=== PATIENT | female | born 1925 | race Asian ===

== ENCOUNTER 2017-06-26 10:31 | Inpatient (IN) | payer MEDICARE, MEDICAID ==
[~2017-06-26] VITALS: Ht 152.4 cm; Wt 66.7 kg
[~2017-06-26 10:31] MED LIST: GABAPENTIN300 MG PO; ISOSORBIDE MONO30 MG PO; LOPRESSOR25 MG PO; NOVOLOG100 UNIT/2; SPIRONOLACTONE25 MG PO; TRAMADOL HCL50 M1 PO; VASOTEC10 MG PO; Z.0.AMLODIPINE BESY1 PO; Z.0.CATAPRES0.1 MG PO; Z.0.GABAPENTIN100 MG PO; Z.0.HYDRALAZINE HCL5 PO; Z.0.LASIX40 MG PO; Z.0.LEVEMIR100 UNIT/ SQ; Z.0.METOPROLOL SUCC2 PO; Z.0.PANTOPRAZOLE SO4 PO; ZETIA10 MG PO; [UNRECOGNIZED DRUG - OTHER] PO
[2017-06-26] MEDS ORDERED: MEROPENEM 1GM 100 ML IV STA (11:04)
[2017-06-26] MEDS ORDERED: SODIUM CHLORIDE 0.9% 1000ML 1,000 ML IV STA (11:04)
[2017-06-26] MEDS ORDERED: ACETAMINOPHEN 1000 MG/100 ML IV STA (11:04)
[2017-06-26] MEDS ORDERED: ACETAMINOPHEN 1000 MG/100 ML 100 ML IV ONE (11:10)
[2017-06-26] MEDS ORDERED: HYDROCORTISONE SOD SUCCINATE 100 MG VIAL IV ONE (11:15)
[2017-06-26 11:26] LABS: BASOPHILS % 0.2 % (0.0-1.0); EOSINOPHILS % 0.1 % (0.0-6.0); HEMATOCRIT 41.8 % (34.2-44.1); HEMOGLOBIN 14.1 g/dL (12.0-16.0); LYMPHOCYTES # (AUTO) 2.8 (1.0-3.2); LYMPHOCYTES % 29.6 % (18.0-39.1); MEAN CORPUSCULAR HGB CONC 33.7 g/dL (31-35); MEAN CORPUSCULAR VOLUME 91.9 fL (81-99); MONOCYTES # (AUTO) 0.7 (0.2-0.8); MONOCYTES % 6.8 % (4.4-11.3); NEUTROPHILS % 62.8 % (38.7-80.0); RED BLOOD COUNT 4.55 x10e6/uL (3.6-5.1); RED CELL DISTRIBUTION WIDTH 13.6 % (11.7-14.4)
[2017-06-26] MEDS ORDERED: MEROPENEM 1 GM VIAL IV NR (11:30)
[2017-06-26 11:40] LABS: ALBUMIN 3.2 g/dL (3.5-5.0); ALBUMIN/GLOBULIN RATIO 0.6 (0.8-2.0); ANION GAP 17.2 mmol/L (8-16); CREATININE, SERUM 1.76 mg/dL (0.57-1.11); POTASSIUM 5.2 mmol/L (3.5-5.1)
--- NOTE | 2017-06-26 11:41 | Diagnostic Imaging Report ---
PROCEDURE:CHEST SINGLE (PORTABLE) COMPARISON:Chest x-ray, 09/12/10. INDICATIONS:ETT PLACEMENT, CENTRAL LINE EVALUATION FINDINGS: Lines and tubes: There is an ET tube with the tip approximately 1 cm above the win. There is a right subclavian central venous catheter extending to the cavoatrial junction. There is an implanted cardiac device on the left with transvenous leads extending to the right atrium and right ventricle. The cardiac silhouette is moderately enlarged. There is calcification of the mitral annulus and calcification in the aortic arch. No focal pulmonary opacity, pleural effusion or pneumothorax. Upper abdomen unremarkable with no free air. No acute bony abnormality. CONCLUSION: 1. ET tube with tip approximately 1 cm above the win. Right subclavian catheter extends to the cavoatrial junction with no pneumothorax. Implanted cardiac device on the left with transvenous leads. 2. Cardiomegaly. No focal pulmonary opacity or pleural effusion. Dictated by: Abhilash Rosas M.D. on 06/26/2017 at 11:49 Electronically approved by: Abhilash Rosas M.D. on 06/26/2017 at 11:49
[2017-06-26 11:47] LABS: CREATINE KINASE MB 1.1 ng/mL (0.00-5.00); TROPONIN I 0.149 ng/mL (0-0.300)
[2017-06-26 12:01] LABS: BILIRUBIN,URINE NEGATIVE (NEGATIVE); KETONES,URINE NEGATIVE (NEGATIVE); LEUKOCYTE ESTERASE ,URINE NEGATIVE (NEGATIVE); NITRITE,URINE NEGATIVE (NEGATIVE); URINE UROBILINOGEN 0.2 mg/dL (0.2 - 1)
[2017-06-26 12:02] LABS: CLARITY,URINE SL CLOUDY (CLEAR); COLOR,URINE YELLOW (YELLOW); PROTEIN,URINE DIPSTICK 2+ (NEGATIVE)
[2017-06-26 12:03] LABS: INR 1.07; PROTHROMBIN TIME 14.5 seconds (11.9-14.5)
[2017-06-26 12:04] LABS: PARTIAL THROMBOPLASTIN TIME 35.6 seconds (23.8-35.5)
[2017-06-26 12:28] LABS: PLATELET COUNT 201 x10e3/uL (140-360)
[2017-06-26] MEDS ORDERED: NOREPINEPHRINE BITARTRATE/ NS 250 ML IV STA ×2 (12:44→13:18)
[2017-06-26 13:15] LABS: BACTERIA,URINE RARE /HPF; EPITHELIAL CELLS,URINE RARE /LPF
[2017-06-26] MEDS ORDERED: TRAZODONE HCL50 MG PO (13:39)
[2017-06-26] MEDS ORDERED: NITROGLYCERIN0.4 MG SL (13:39)
[2017-06-26] MEDS ORDERED: OMEPRAZOLE40 MG PO (13:39)
[2017-06-26] MEDS ORDERED: DIGOXIN125 MCG PO (13:39)
[2017-06-26] MEDS ORDERED: GABAPENTIN300 MG PO (13:39)
[2017-06-26] MEDS ORDERED: ASPIR 8181 MG PO (13:39)
[2017-06-26] MEDS ORDERED: PREDNISONE5 MG PO (13:39)
[2017-06-26] MEDS ORDERED: MEROPENEM 1GRAM 1 GM in SODIUM CHLORIDE 0.9% 100 ML 100 ML IV SCH (14:00)
[2017-06-26] MEDS ORDERED: MEROPENEM 1 GM VIAL IV SCH (14:00)
[2017-06-26] MEDS: IPRATROPIUM BROMIDE 0.02% 2.5 ML NEB NEB SCH ×2 (14:00→19:40)
[2017-06-26] MEDS: ALBUTEROL SULF 0.083% NEB SOLN 3 ML NEB NEB SCH ×3 (15:00→23:00)
[2017-06-26] MEDS: SODIUM CHLORIDE 0.9% 1000ML 1,000 ML IV SCH ×2 (15:34→21:30)
[2017-06-26 16:39] LABS: ABG PH 7.34 (7.31-7.41)
[2017-06-26] MEDS ORDERED: DEXTROSE 50% SYRINGE 50 ML IV PRN (18:15)
[2017-06-26] MEDS ORDERED: ASPIRIN 81 MG CHEW TAB PO ONE ×2 (19:45)
[2017-06-26 19:48] LABS: CREATINE KINASE MB 2.5 ng/mL (0.00-5.00); TROPONIN I 0.092 ng/mL (0-0.300)
[2017-06-26] MEDS: MIDAZOLAM HCL 25 MG in SODIUM CHLORIDE 0.9% 50ML 45 ML IV PRN (20:10)
[2017-06-26] MEDS ORDERED: INSULIN REGULAR, HUMAN 100 UNIT/1 ML 3ML VIAL SQ SCH (21:00)
[2017-06-26] MEDS: MEROPENEM 1 GM VIAL IV SCH (21:30)
[2017-06-27] VITALS (9 sets, daily range): BP systolic 113–196; BP diastolic 61–134
[2017-06-27] MEDS: ACETAMINOPHEN 1000 MG/100 ML IV SCH ×4 (00:55→21:00)
[2017-06-27] MEDS ORDERED: ALBUTEROL/IPRATROPIUM 3 ML NEB NEB PRN (01:15)
[2017-06-27] MEDS ORDERED: PROPOFOL IV EMULSION 10MG/ML 100 ML ONE (01:27)
[2017-06-27] MEDS ORDERED: PROPOFOL IV EMULSION 10MG/ML 100 ML IV PRN (01:30)
[2017-06-27] MEDS: OSELTAMIVIR PHOSPHATE 75 MG CAP PO SCH ×3 (01:50→21:25)
[2017-06-27] MEDS: MIDAZOLAM HCL 25 MG in SODIUM CHLORIDE 0.9% 50ML 45 ML IV PRN (01:51)
[2017-06-27] MEDS: SODIUM CHLORIDE 0.9% 1000ML 1,000 ML IV SCH ×2 (01:53→16:38)
[2017-06-27] MEDS: IPRATROPIUM BROMIDE 0.02% 2.5 ML NEB NEB SCH ×4 (04:00→18:59)
[2017-06-27] MEDS: ALBUTEROL SULF 0.083% NEB SOLN 3 ML NEB NEB SCH ×7 (04:00→23:45)
[2017-06-27 04:41] LABS: BASOPHILS % 0.2 % (0.0-1.0); HEMATOCRIT 40.2 % (34.2-44.1); HEMOGLOBIN 13.6 g/dL (12.0-16.0); LYMPHOCYTES # (AUTO) 1.3 (1.0-3.2); LYMPHOCYTES % 10.3 % (18.0-39.1); MEAN CORPUSCULAR HEMOGLOBIN 30.9 pg (28-32); MEAN CORPUSCULAR HGB CONC 33.8 g/dL (31-35); MEAN CORPUSCULAR VOLUME 91.4 fL (81-99); MONOCYTES # (AUTO) 0.5 (0.2-0.8); NEUTROPHILS # (AUTO) 10.6 (2.1-6.9); PLATELET COUNT 216 x10e3/uL (140-360); RED CELL DISTRIBUTION WIDTH 13.8 % (11.7-14.4)
[2017-06-27 04:55] LABS: ABG HCO3 19 mmol/L (23-28); ABG PCO2 28 mmHg (41-51); ABG PH 7.43 (7.31-7.41); ABG PO2 96 mmHg (80-105)
[2017-06-27 04:57] LABS: ANION GAP 15.6 mmol/L (8-16); CALCIUM 8.3 mg/dL (8.4-10.2); CREATININE, SERUM 1.6 mg/dL (0.57-1.11); POTASSIUM 4.6 mmol/L (3.5-5.1)
[2017-06-27 05:04] LABS: CREATINE KINASE MB 3.6 ng/mL (0.00-5.00); TROPONIN I 0.094 ng/mL (0-0.300)
[2017-06-27] MEDS: HYDROCORTISONE SOD SUCCINATE 100 MG VIAL IV SCH ×3 (06:06→23:58)
[2017-06-27] MEDS: MEROPENEM 1 GM VIAL IV SCH ×3 (06:06→23:58)
--- NOTE | 2017-06-27 06:07 | Diagnostic Imaging Report ---
CHEST SINGLE (PORTABLE), 06/27/2017 5:00 AM Technique: CHEST SINGLE (PORTABLE) Comparison: None available. Clinical history: Pneumonia Findings: See Impression Impression: 1. Lines/Tubes: Left chest wall dual-lead pacer. Right central venous catheter tip at the high right atrium. ET tube 2.1 cm above the win. 2. Mildly enlarged cardiac silhouette with mitral annulus calcification. 3. Central vascular congestion. 4. Patchy bilateral opacities which may reflect pneumonia. Signed by: Dr Diana Juárez MD on 06/27/2017 6:04 AM
[2017-06-27] MEDS: INSULIN REGULAR, HUMAN 100 UNIT/1 ML 3ML VIAL SQ SCH ×3 (06:15→16:37)
--- NOTE | 2017-06-27 07:23 | Consultation ---
DATE OF CONSULTATION: June 26, 2017 PULMONARY/CRITICAL CARE MEDICINE CONSULT REASON FOR REFERRAL: Respiratory failure. HISTORY: Ms. Akbar is a pleasant 89-year-old female with acute respiratory failure. Patient was in usual state of health recently. Details are partially unknown due to the fact that she is not able to give history. Patient was noted to be with cough several days ago. Today, the patient could not wake up. Patient was found by EMS to be in respiratory distress. Oxygen saturation was 50%. Patient was given Versed and was intubated. Blood pressure was 60s systolic when she arrived. She was immediately intubated. She had fever 104 degrees. She had wheezing and dyspnea on clinical exam. Patient had blood gas showing 7.34/36/224 on 100% oxygen. Patient was given Levophed high dose. BNP was 184. Chest x-ray was mostly clear. Urinalysis with no significant white blood cells noted. Her creatinine is 1.76, above her baseline. At this point, she is admitted and I am consulted. PAST MEDICAL HISTORY: Hypertension, diabetes, CHF, coronary artery disease, stroke reported. Patient recently with good functional status, but noted to be frail. MEDICATIONS: Medication list reviewed per electronic record. Levophed has already been taken off. Versed drip 4 mg per hour. IV fluids 125 mL per hour. Other medicines per record. ALLERGIES: NO KNOWN DRUG ALLERGIES. SOCIAL HISTORY: No smoking, no drinking, no drugs. Lives with family reportedly. FAMILY HISTORY: Noncontributory to this. REVIEW OF SYSTEMS: Cannot get as she is intubated. OBJECTIVE: VITAL SIGNS: Patient is currently afebrile as the temperature has come down. Other vitals per electronic record. GENERAL: No distress, in coma, on medications and on ventilator. HEENT: Normocephalic, atraumatic. NECK: Supple. Throat midline. LUNGS: Bilateral air entry, few rhonchi throughout, mild to moderate wheezing. CARDIOVASCULAR: S1 and S2. No murmurs, rubs, or gallops. ABDOMEN: Soft, nontender. EXTREMITIES: No clubbing, no cyanosis, there is no edema. INTEGUMENT: No rash, no purpura. LABS: 5.2 potassium, 1.76 creatinine. 9.5 white count, 42 hematocrit, 21,000 platelets. Urinalysis with no white cells. IMPRESSION AND PLAN: 1. Acute respiratory failure, intubated. 2. Shock, septic and possibly obstructive. 3. Pulmonary hypertension. 4. Treat for severe asthma exacerbation. 5. Treat for possible bronchitis or pneumonia. 6. Febrile syndrome, not otherwise specified, under evaluation. 7. Baseline debility. 8. Diabetes. 9. Hypertension. 10. History of transient ischemic attack. 11. Coronary artery disease, medically treated in the past. 12. Reported valvular heart disease. Continue intubated state. Wean the ventilator down. Patient still with moderately high ventilator pressures and with active wheezing. She will probably not be extubated in the morning. I am okay with starting low-dose tube feeds and following carefully with aspiration precautions. Furthermore, patient to be switched off the Versed with propofol as her blood pressure is better. Follow up off the Levophed. Pancultures were done. Continue antibiotics as needed. Will follow along closely. Start Tamiflu empirically. Gastrointestinal prophylaxis and deep venous thrombosis prophylaxis are indicated. Thank you very much, Dr. Sarabia for allowing me the chance to participate in the care of Ms. Akbar. Do not hesitate to contact me if I can help in any way. Job#: [id number]
[2017-06-27] MEDS: VANCOMYCIN 750MG/NS 150ML IVPB 150 ML IV SCH ×2 (08:48→21:02)
[2017-06-27 12:00] LABS: CREATINE KINASE MB 2.6 ng/mL (0.00-5.00); TROPONIN I 0.095 ng/mL (0-0.300)
--- NOTE | 2017-06-27 15:11 | Progress Note ---
DATE: June 27, 2017 PULMONARY MEDICINE PROGRESS NOTE SUBJECTIVE: Mrs. Akbar was seen and examined at bedside. Patient continues to have slow progress. She remains off the pressors at this time. However, she did have continued propofol. She has moderately increased airway pressures on ventilator with 25 peak pressure. She has audible moderate wheezing and moderate rhonchi. She is with urine output at about 75 mL per hour. She is at 100% oxygen saturation on treatment. REVIEW OF SYSTEMS: Cannot get as she is intubated. OBJECTIVE VITAL SIGNS: Afebrile. Vital signs noted per electronic record. GENERALLY: No acute distress, alert and mostly very well sedated. Takes a lot to get her to eye open. HEENT: Normocephalic, atraumatic. NECK: Supple. Throat midline. LUNGS: Bilateral air entry, a few rhonchi, a few crackles, a few wheezes throughout. CARDIOVASCULAR: S1 and S2. No murmurs, rubs or gallops. ABDOMINAL: Soft, nontender. EXTREMITIES: No clubbing, no cyanosis. There is no significant edema. INTEGUMENT: No rash. No purpura. LABS: BUN 29, creatinine 1.6. White count 12.4, hematocrit 40. IMPRESSION AND PLAN 1. Acute respiratory failure, intubated. 2. Septic shock, improved. 3. Encephalopathy, multifactorial. 4. Treat for acute pneumonia. 5. Treat for possible influenza pneumonia. 6. Asthma exacerbation versus bronchitis exacerbation. Continue current treatment. Keep her intubated. Ventilator support. Continue some steroids for the breathing. Bronchodilators. IV antibiotics will be continued. Will adjust medicines for her creatinine clearance and will have to investigate vancomycin namely, as well as Merrem. Follow up closely. Patient remains in critical condition. I discussed with her granddaughter regarding the treatment plan. Job#: [id number] EV
[2017-06-27] MEDS ORDERED: SODIUM CHLORIDE 0.9% 50ML 50 ML ONE (16:29)
[2017-06-27] MEDS ORDERED: METOPROLOL TARTRATE 25 MG TAB NG ONE (21:00)
--- NOTE | 2017-06-27 21:59 | Diagnostic Imaging Report ---
EXAM: US RENAL RETROPERITONEAL COMP INDICATION: \S\delilah/ckd COMPARISON: None TECHNIQUE: Transverse and longitudinal images of the kidneys and bladder were obtained. FINDINGS: Right Kidney: Length: 8.1 cm Appearance: Increased echogenicity. Collecting system: No hydronephrosis Stones: None Cyst/Mass: Interpolar renal cyst, 1.6 x 1.5 x 1.4 cm Left Kidney: Length: 8.0 cm Appearance: Increased echogenicity. Collecting system: No hydronephrosis Stones: None Cyst/Mass: None Bladder: Not seen Impression: No hydronephrosis. Findings which can be seen with medical renal disease. Signed by: Dr Diana Juárez MD on 06/27/2017 9:55 PM
--- NOTE | 2017-06-27 22:48 | Consultation ---
DATE OF CONSULTATION: June 27, 2017 REASON FOR THE CONSULTATION: Respiratory failure, multiple medical health problems. Source of information, patient is intubated, is from the family, records, extensive visits with the family and evaluation. HISTORY: This is an 89-year-old lady, who is known with multiple health problems including very severe advanced lung disease, repeated aspirations, repeated respiratory distress, several intubations in the past, very stormy course in 2010, 2011, 2013. Patient also is known to have pacemaker implantation. Patient is diabetic of many years' duration. She is quite debilitated. She is hypertensive. She has history of TIAs. There is history of possible seizure disorder. Surprisingly, patient is doing well at home. She is in her chronic illness status. Her activities are very limited. She does have shortness of breath on minimal activity. She needed continuous care by the family. Patient came to this institution on June 26, 2017, with acute respiratory failure, extreme hypotension. She was ill for several days with fever of 104 with wheezing. Her blood gases following intubation was good. Her BNP on admission was only at 184. Surprisingly, her chest x-ray was clear. She was dehydrated. Her creatinine was elevated. Patient intubated, on ventilator. She needs to have support of her blood pressure initially, but then old was withdrawn. Her temperature coming down. She is covered with , vancomycin, and she was given hydrocortisone. She was placed on insulin treatment. Prior to this illness, patient, as I mentioned, surprisingly does not have any angina. She does have easy fatigability, shortness of breath on minimal activity, repeated cough, chronic pulmonary condition. She takes several medications including inhalers and she is surprisingly managed to do well for the last few years. PAST MEDICAL HISTORY 1. Diabetes mellitus, severe end-organ damage. 2. Hypertension. 3. Hysterectomy. 4. Cataract surgery. 5. TIA. 6. Repeated prolonged intubation in the past. 7. Cataract surgery. 8. Repeated pneumonia. 9. Seizure activity. 10. Coronary artery disease, medically treated. 11. Pacemaker implantation. HOME MEDICATIONS: Very lengthy list including Toprol, Norvasc, clonidine, hydralazine, insulin Levemir, Lasix, spironolactone, potassium supplement, Protonix, Toradol. ALLERGIES: NONE. FAMILY HISTORY: Strongly positive for hypertension, diabetes mellitus, but no premature coronary artery disease. She lost a daughter to sarcoma. PHYSICAL EXAM VITALS: Elderly lady, intubated, on ventilator. Height of 5'1". Weight of 140 pounds. Blood pressure 160/90. Heart rate of 80. Respiratory rate of 18. HEENT: Opacities are noted. Patient is intubated. NECK: No elevation of jugular venous pulsation. CHEST: There is right subclavian central line in place. There is pacemaker on the left infraclavicular area. There are crackles both lung meier with decreased air entry. HEART: Irregularly irregular rate with a pacemaker spikes at times. Increased intensity of 2nd heart sounds. Mitral and tricuspid regurgitation murmur are noted. ABDOMEN: Liver edge is palpable. Soft abdomen. EXTREMITIES: Chronic skin discoloration and changes. No edema. No gross signs of DVT. NEUROLOGIC: Patient on ventilator intubated, sedated. LAB DATA: Admission BNP was normal. Repeated BNP today after several liters of IV fluids at 114.71. ABG showed pH of 7.43, pCO2 of 28, pO2 of 96 on ventilator. Most recent BUN at 29, creatinine of 1.6, sodium 135, potassium 4.6. White blood cell count of 12.4, hemoglobin 13.6, hematocrit 40%, platelet count 216,000. IMPRESSIONS AND PLAN 1. Acute respiratory failure most likely secondary to the recent febrile illness. 2. Shock status on admission, but with IV fluids resuscitation and inotropes, which was thought patient's blood pressure recovered. 3. Clinically pulmonary hypertension. 4. Chronic lung disease with history of several intubations in the past. 5. Coronary artery disease. 6. Pacemaker implantation. 7. Repeated aspiration. 8. Debility. 9. Uncontrolled diabetes mellitus. 10. Valvular heart disease. Cardiac-madrid plan will be supportive medical therapy. Adjustment of diuresis and volume. Pulmonary care. Patient already covered with antibiotic. Will check echocardiogram. Will adjust medication. Case discussed with the staff and more importantly with the granddaughter, then with the son, and several family members, very lengthy visit. Will follow patient's progression with you and would like to thank you for your kind referral. Job#: [id number] CQ
[2017-06-28] VITALS (22 sets, daily range): BP systolic 101–187; BP diastolic 58–120
[2017-06-28] MEDS: ACETAMINOPHEN 1000 MG/100 ML IV SCH (00:04)
[2017-06-28] MEDS: DOXYCYCLINE 100MG/NS 100ML 100 ML IV SCH ×2 (00:46→11:37)
[2017-06-28] MEDS: INSULIN REGULAR, HUMAN 100 UNIT/1 ML 3ML VIAL SQ SCH ×4 (00:46→17:31)
[2017-06-28] MEDS: IPRATROPIUM BROMIDE 0.02% 2.5 ML NEB NEB SCH ×6 (03:21→21:47)
[2017-06-28] MEDS: ALBUTEROL SULF 0.083% NEB SOLN 3 ML NEB NEB SCH ×5 (04:04→19:00)
[2017-06-28 05:14] LABS: BASOPHILS % 0.1 % (0.0-1.0); HEMATOCRIT 31.2 % (34.2-44.1); HEMOGLOBIN 10.5 g/dL (12.0-16.0); LYMPHOCYTES # (AUTO) 0.7 (1.0-3.2); LYMPHOCYTES % 8.8 % (18.0-39.1); MEAN CORPUSCULAR HEMOGLOBIN 31.3 pg (28-32); MEAN CORPUSCULAR HGB CONC 33.7 g/dL (31-35); MEAN CORPUSCULAR VOLUME 93.1 fL (81-99); MONOCYTES # (AUTO) 0.2 (0.2-0.8); MONOCYTES % 2.7 % (4.4-11.3); NEUTROPHILS # (AUTO) 7.4 (2.1-6.9); NEUTROPHILS % 87.9 % (38.7-80.0); PLATELET COUNT 159 x10e3/uL (140-360); RED BLOOD COUNT 3.35 x10e6/uL (3.6-5.1); RED CELL DISTRIBUTION WIDTH 14.2 % (11.7-14.4)
[2017-06-28 05:38] LABS: ALBUMIN 2.1 g/dL (3.5-5.0); ALBUMIN/GLOBULIN RATIO 0.6 (0.8-2.0); ANION GAP 13.3 mmol/L (8-16); CALCIUM 8.1 mg/dL (8.4-10.2); CHOL/HDL RATIO 5.2 (3.0-3.6); CREATININE, SERUM 1.42 mg/dL (0.57-1.11); POTASSIUM 4.3 mmol/L (3.5-5.1)
[2017-06-28 05:58] LABS: CREATINE KINASE MB 1.5 ng/mL (0.00-5.00); THYROID STIMULATING HORMONE 0.684 uIU/mL (0.350-4.940); TROPONIN I 0.09 ng/mL (0-0.300)
--- NOTE | 2017-06-28 06:48 | Diagnostic Imaging Report ---
CHEST SINGLE (PORTABLE), 06/28/2017 5:00 AM Technique: CHEST SINGLE (PORTABLE) Comparison: 06/27/2017 Clinical history: Respiratory failure Findings: See Impression Impression: 1. Lines/Tubes: Left chest wall dual-lead pacer. Right central venous catheter tip at the high right atrium. Placement of subdiaphragmatic NG tube. ET tube at the win; recommend retraction. 2. Stable enlarged cardiac silhouette with mitral annulus calcification. 3. Central vascular congestion. 4. Patchy bilateral opacities which may reflect pneumonia and/or atelectasis. Signed by: Dr Diana Juárez MD on 06/28/2017 6:44 AM
[2017-06-28] MEDS: MEROPENEM 1 GM VIAL IV SCH ×3 (06:52→21:35)
[2017-06-28] MEDS: SODIUM CHLORIDE 0.9% 1000ML 1,000 ML IV SCH ×2 (06:52→14:00)
[2017-06-28] MEDS: HYDROCORTISONE SOD SUCCINATE 100 MG VIAL IV SCH ×3 (06:52→21:35)
[2017-06-28] MEDS: FAMOTIDINE 20 MG/2 ML VIAL IV SCH ×2 (09:00→17:31)
[2017-06-28] MEDS: METOPROLOL TARTRATE 25 MG TAB NG SCH ×2 (09:00→15:28)
[2017-06-28] MEDS: OSELTAMIVIR PHOSPHATE 75 MG CAP PO SCH ×2 (09:00→21:34)
[2017-06-28] MEDS: HEPARIN SOD (PORCINE) 5,000 UNIT/ML VIAL SC SCH ×2 (10:06→21:33)
[2017-06-28] MEDS: INSULIN DETEMIR 100 UNIT/ML PEN SQ SCH ×2 (11:38→21:30)
[2017-06-28] MEDS ORDERED: ENALAPRIL MALEATE 5 MG TAB PO ONE (13:00)
[2017-06-28] MEDS ORDERED: SODIUM CHLORIDE 0.9% 50ML 50 ML ONE (15:00)
[2017-06-28] MEDS: CLONIDINE HCL 0.1 MG TAB PO SCH (15:30)
[2017-06-28] MEDS: AMLODIPINE BESYLATE 5 MG TAB PO SCH (15:31)
[2017-06-28] MEDS ORDERED: LACTULOSE SYRUP 20 GM/30 ML UDC PO ONE ×2 (18:30→21:45)
[2017-06-28] MEDS: VANCOMYCIN 750MG/NS 150ML IVPB 150 ML IV SCH (21:46)
[2017-06-29] VITALS (23 sets, daily range): BP systolic 124–192; BP diastolic 71–112
[2017-06-29] MEDS: ALBUTEROL SULF 0.083% NEB SOLN 3 ML NEB NEB SCH ×6 (02:15→22:45)
[2017-06-29] MEDS: IPRATROPIUM BROMIDE 0.02% 2.5 ML NEB NEB SCH ×4 (02:15→19:20)
[2017-06-29] MEDS: FUROSEMIDE INJ 10 MG/ML 4 ML VIAL IV SCH ×3 (02:37→22:41)
[2017-06-29] MEDS ORDERED: HYDRALAZINE HCL 20 MG/ML VIAL IV PRN (03:15)
--- NOTE | 2017-06-29 04:38 | Progress Note ---
DATE: June 28, 2017 PULMONARY MEDICINE PROGRESS NOTE SUBJECTIVE: Mrs. Akbar was seen and examined at bedside. She was on the ventilator in the morning. 98 per minute. RSPI 71. Patient was at least -27. She remains on IV fluids at this time. Tube feeds were not yet started and awaiting extubation decision. Will give the patient a shot at extubation. Even into the night, she is spontaneously breathing, although there is some mild shortness of breath cited. Chest x-ray shows pneumonia versus overload pattern. REVIEW OF SYSTEMS: Cannot get as she is on mechanical support. OBJECTIVE VITALS: Afebrile. Vital signs noted per electronic record. GENERAL: No acute distress. Alert but looks weak. HEENT: Normocephalic and atraumatic. NECK: Supple. Throat midline. LUNGS: Bilateral air entry. Few wheezes and few rhonchi. Rare crackles. CARDIOVASCULAR: S1 and S2. No murmurs, rubs or gallops. ABDOMEN: Soft and nontender. EXTREMITIES: No clubbing. No cyanosis. No edema. INTEGUMENT: No rash. No purpura. LABS: Creatinine 1.4, bicarbonate 21. White count 8, hematocrit 31, and platelets 159,000. IMPRESSION AND PLAN 1. Acute respiratory failure, intubated and then extubated. 2. Asthma with exacerbation. 3. Pneumonia. 4. Possible fluid overload component. 5. Weakness. 6. Syzao-nt-exsbavv kidney disease. 7. Treat for possible influenza. Continue IV antibiotics. Continue trial of Tamiflu. At this time, will ensue with diuretics. Patient is on BiPAP p.r.n. for comfort. Will follow along closely. Repeat blood draw tomorrow. Follow along closely and ensure appropriate progress. Continue steroids. Greater than 30 minutes of direct care on this date. Multiple interventions, assessment and coordination of care. Job#: [id number] KARMEN
[2017-06-29] MEDS: HYDROCORTISONE SOD SUCCINATE 100 MG VIAL IV SCH ×3 (05:34→22:41)
[2017-06-29] MEDS: INSULIN REGULAR, HUMAN 100 UNIT/1 ML 3ML VIAL SQ SCH ×4 (05:50→17:54)
[2017-06-29 05:55] LABS: BASOPHILS % 0.1 % (0.0-1.0); HEMATOCRIT 36.4 % (34.2-44.1); LYMPHOCYTES # (AUTO) 0.8 (1.0-3.2); LYMPHOCYTES % 6.8 % (18.0-39.1); MEAN CORPUSCULAR HEMOGLOBIN 30.5 pg (28-32); MEAN CORPUSCULAR VOLUME 92.6 fL (81-99); MONOCYTES # (AUTO) 0.3 (0.2-0.8); MONOCYTES % 2.6 % (4.4-11.3); NEUTROPHILS # (AUTO) 10.7 (2.1-6.9); NEUTROPHILS % 88.7 % (38.7-80.0); PLATELET COUNT 193 x10e3/uL (140-360); RED BLOOD COUNT 3.93 x10e6/uL (3.6-5.1); RED CELL DISTRIBUTION WIDTH 14.5 % (11.7-14.4)
[2017-06-29 06:18] LABS: CREATININE, SERUM 1.4 mg/dL (0.57-1.11); MAGNESIUM 1.7 MG/DL (1.3-2.1); PHOSPHORUS 2.1 MG/DL (2.3-4.7)
[2017-06-29 06:29] LABS: ANION GAP 17.1 mmol/L (8-16)
[2017-06-29 06:30] LABS: POTASSIUM 3.1 mmol/L (3.5-5.1)
--- NOTE | 2017-06-29 06:30 | Diagnostic Imaging Report ---
CHEST SINGLE (PORTABLE), 06/29/2017 5:00 AM Technique: CHEST SINGLE (PORTABLE) Comparison: 06/28/2017 Clinical history: Respiratory failure Findings: See Impression Impression: 1. Lines/Tubes: Left chest wall dual-lead pacer. Right central venous catheter tip at the high right atrium. Removal of NG tube, ET tube. 2. Stable enlarged cardiac silhouette with mitral annulus calcification. 3. Central vascular congestion. 4. Patchy bilateral opacities which may reflect pneumonia and/or atelectasis. Signed by: Dr Diana Juárez MD on 06/29/2017 6:26 AM
[2017-06-29] MEDS: OSELTAMIVIR PHOSPHATE 75 MG CAP PO SCH ×2 (09:00→21:00)
[2017-06-29] MEDS: FAMOTIDINE 20 MG/2 ML VIAL IV SCH ×2 (09:27→17:00)
[2017-06-29] MEDS: MEROPENEM 500MG 500 MG in SODIUM CHLORIDE 0.9% 50ML 50 ML IV SCH ×2 (09:27→22:41)
[2017-06-29] MEDS: CLONIDINE HCL 0.1 MG TAB PO SCH ×2 (09:29→17:00)
[2017-06-29] MEDS: METOPROLOL TARTRATE 25 MG TAB NG SCH ×2 (09:29→17:00)
[2017-06-29] MEDS: AMLODIPINE BESYLATE 5 MG TAB PO SCH ×2 (09:30→17:50)
[2017-06-29] MEDS: HEPARIN SOD (PORCINE) 5,000 UNIT/ML VIAL SC SCH ×2 (09:30→21:00)
[2017-06-29] MEDS ORDERED: POTASSIUM CHLORIDE 20MEQ/100ML 100 ML IV ONE (11:00)
[2017-06-29] MEDS: SENNA-S TABLET PO SCH ×2 (12:43→17:50)
[2017-06-29] MEDS: DOXYCYCLINE 100MG/NS 100ML 100 ML IV SCH ×2 (12:43)
[2017-06-29] MEDS ORDERED: POTASSIUM CHL 40 MEQ in WATER STERILE 10ML VIAL 80 ML IV ONE (13:00)
[2017-06-29] MEDS ORDERED: POTASSIUM PHOSPHATE 20 MM in SODIUM CHLORIDE 0.9% 250ML 250 ML IV ONE (17:30)
[2017-06-29] MEDS: APIXAB 2.5 MG TABLET PO SCH (17:50)
[2017-06-29] MEDS ORDERED: MINERAL OIL 132 ML BTL PR PRN ×2 (21:00→22:15)
[2017-06-29] MEDS ORDERED: MAGNESIUM HYDROXIDE 30 ML UDC PO ONE (21:00)
[2017-06-29] MEDS: VANCOMYCIN 750MG/NS 150ML IVPB 150 ML IV SCH (23:00)
[2017-06-30] VITALS (27 sets, daily range): BP systolic 107–187; BP diastolic 67–109
[2017-06-30] MEDS: IPRATROPIUM BROMIDE 0.02% 2.5 ML NEB NEB SCH ×5 (02:45→22:40)
[2017-06-30] MEDS: ALBUTEROL SULF 0.083% NEB SOLN 3 ML NEB NEB SCH ×6 (02:45→22:40)
--- NOTE | 2017-06-30 03:12 | Progress Note ---
DATE: June 29, 2017 PULMONARY MEDICINE PROGRESS NOTE SUBJECTIVE: Mrs. Akbar was seen and examined at bedside. She continues to have weakness. She has moderate assist needed on bed mobility. She has high amounts of urine output, more than 3 L already on Lasix. She did not require BiPAP, but she still has a lot of secretions that she is having trouble coughing up. Oxygen saturation 97% on 3 L per minute nasal cannula. Chest x-ray continues to show bilateral overload versus pneumonia. REVIEW OF SYSTEMS: Cannot get as . OBJECTIVE VITALS: Afebrile. Vital signs noted per electronic record. GENERAL: In no acute distress, but some difficulty expectorating. Occasionally can hear lung crackles from across the room. HEENT: Normocephalic and atraumatic. NECK: Supple. Throat midline. LUNGS: Bilateral air entry. Moderate air entry. Moderate rhonchi, mild wheezes and few crackles. CARDIOVASCULAR: S1 and S2. No murmurs, rubs or gallops. ABDOMEN: Soft and nontender. EXTREMITIES: No clubbing. No cyanosis. There is trace edema. INTEGUMENT: No rash. No purpura. LABS: Potassium 3.1, creatinine 1.4, bicarbonate 19. White count 12, hematocrit 36. IMPRESSION AND PLAN 1. Hypokalemia emerging. 2. Fluid overload. 3. Treat for pneumonia. 4. Acute respiratory failure, extubated yesterday, under risk. 5. Insufficient cough, poor expectoration. 6. Asthma with exacerbation, possibly bronchitis, chronic. 7. Suspect constipation. 8. Weakness. At this time, will follow up while she is on medicines to try to promote bowel movements. Continue to alter diet and limit intake. Speech evaluation felt best as the patient seems to have significant aspiration risk. Only thickened fluid under observation and supervision of staff. Continue to replete potassium. Will follow along closely. Patient remains in critical condition. She still has some risk of being reintubated. However, the assistant casino shift manager yesterday reported the family now states they do not want reintubation. Will follow advance directives. Acapella CPT augment. Will follow along closely. Job#: [id number] KARMEN
[2017-06-30] MEDS: INSULIN REGULAR, HUMAN 100 UNIT/1 ML 3ML VIAL SQ SCH ×5 (06:21→22:56)
--- NOTE | 2017-06-30 06:33 | Diagnostic Imaging Report ---
CHEST SINGLE (PORTABLE), 06/30/2017 5:00 AM Technique: CHEST SINGLE (PORTABLE) Comparison: 06/29/2017 Clinical history: CHF/pneumonia Findings: See Impression Impression: 1. Lines/Tubes: Left chest wall dual-lead pacer. Right central venous catheter tip at the high right atrium. 2. Stable enlarged cardiac silhouette with mitral annulus calcification. 3. Stable patchy bilateral opacities suspicious for pneumonia. Underlying central vascular congestion/trace edema with small left effusion. Signed by: Dr Diana Juárez MD on 06/30/2017 6:30 AM
[2017-06-30 06:39] LABS: BASOPHILS % 0.2 % (0.0-1.0); HEMATOCRIT 34.6 % (34.2-44.1); HEMOGLOBIN 11.4 g/dL (12.0-16.0); LYMPHOCYTES # (AUTO) 0.9 (1.0-3.2); LYMPHOCYTES % 8.3 % (18.0-39.1); MEAN CORPUSCULAR HEMOGLOBIN 30.4 pg (28-32); MEAN CORPUSCULAR HGB CONC 32.9 g/dL (31-35); MEAN CORPUSCULAR VOLUME 92.3 fL (81-99); MONOCYTES # (AUTO) 0.3 (0.2-0.8); NEUTROPHILS # (AUTO) 9.8 (2.1-6.9); NEUTROPHILS % 86.8 % (38.7-80.0); PLATELET COUNT 208 x10e3/uL (140-360); RED BLOOD COUNT 3.75 x10e6/uL (3.6-5.1); RED CELL DISTRIBUTION WIDTH 14.6 % (11.7-14.4)
[2017-06-30 07:06] LABS: ALBUMIN 3.1 g/dL (3.5-5.0); ALBUMIN/GLOBULIN RATIO 0.7 (0.8-2.0); ANION GAP 18.1 mmol/L (8-16); CALCIUM 9.2 mg/dL (8.4-10.2); CREATININE, SERUM 1.36 mg/dL (0.57-1.11); POTASSIUM 3.1 mmol/L (3.5-5.1)
[2017-06-30] MEDS: FAMOTIDINE 20 MG/2 ML VIAL IV SCH ×2 (08:30→17:01)
[2017-06-30] MEDS: METOPROLOL TARTRATE 25 MG TAB NG SCH ×2 (08:30→17:01)
[2017-06-30] MEDS: HYDROCORTISONE SOD SUCCINATE 100 MG VIAL IV SCH ×2 (08:30→22:00)
[2017-06-30] MEDS: SENNA-S TABLET PO SCH ×2 (08:30→17:01)
[2017-06-30] MEDS: APIXAB 2.5 MG TABLET PO SCH ×2 (08:30→17:01)
[2017-06-30] MEDS: OSELTAMIVIR PHOSPHATE 75 MG CAP PO SCH (08:30)
[2017-06-30] MEDS: FUROSEMIDE INJ 10 MG/ML 4 ML VIAL IV SCH ×2 (08:30→22:00)
[2017-06-30] MEDS: CLONIDINE HCL 0.1 MG TAB PO SCH ×2 (08:30→17:01)
[2017-06-30] MEDS: AMLODIPINE BESYLATE 5 MG TAB PO SCH (08:30)
[2017-06-30] MEDS: MEROPENEM 500MG 500 MG in SODIUM CHLORIDE 0.9% 50ML 50 ML IV SCH (08:30)
[2017-06-30] MEDS: HEPARIN SOD (PORCINE) 5,000 UNIT/ML VIAL SC SCH (08:32)
[2017-06-30] MEDS: INSULIN DETEMIR 100 UNIT/ML PEN SQ SCH ×3 (08:33→21:00)
[2017-06-30] MEDS ORDERED: POTASSIUM CHLORIDE 20 MEQ TAB CR PO ONE ×2 (10:30→12:00)
[2017-06-30] MEDS: DOXYCYCLINE 100MG/NS 100ML 100 ML IV SCH ×2 (11:10)
[2017-06-30] MEDS: VANCOMYCIN 750MG/NS 150ML IVPB 150 ML IV SCH (21:00)
[2017-06-30] MEDS: TEMAZEPAM 15 MG CAP PO PRN (22:00)
[2017-06-30] MEDS: MEROPENEM 500MG 500 MG in WATER STERILE 10ML VIAL 10 ML IV SCH (22:00)
[2017-07-01] VITALS (46 sets, daily range): BP systolic 110–171; BP diastolic 60–113
[2017-07-01] MEDS: DOXYCYCLINE 100MG/NS 100ML 100 ML IV SCH ×2 (01:39→12:00)
[2017-07-01] MEDS: ALBUTEROL SULF 0.083% NEB SOLN 3 ML NEB NEB SCH ×6 (02:20→22:35)
[2017-07-01] MEDS ORDERED: GUAIFENESIN/DEXTROMETHORPHAN LIQD 5 ML UDC ONE (02:22)
[2017-07-01] MEDS: GUAIFENESIN/DEXTROMETHORPHAN LIQD 5 ML UDC PO PRN ×2 (02:36→17:53)
[2017-07-01] MEDS: INSULIN REGULAR, HUMAN 100 UNIT/1 ML 3ML VIAL SQ SCH ×4 (05:27→22:15)
--- NOTE | 2017-07-01 06:17 | Diagnostic Imaging Report ---
CHEST SINGLE (PORTABLE), 07/01/2017 5:00 AM Technique: CHEST SINGLE (PORTABLE) Comparison: 1231.17 Clinical history: \S\CHF and bilateral pneumonia \[id number] \S\0530 \S\Y Findings: See Impression Impression: 1. Lines/Tubes: Left chest wall dual-lead pacer. Right central venous catheter tip at the high right atrium. 2. Stable enlarged cardiac silhouette with mitral annulus calcification. 3. Central vascular congestion and/or mild edema. Previously described patchy opacities felt to reflect pneumonia are less conspicuous Signed by: Dr Diana Juárez MD on 07/01/2017 6:14 AM
[2017-07-01 06:27] LABS: BASOPHILS % 0.2 % (0.0-1.0); HEMATOCRIT 34.7 % (34.2-44.1); HEMOGLOBIN 11.1 g/dL (12.0-16.0); LYMPHOCYTES # (AUTO) 0.9 (1.0-3.2); LYMPHOCYTES % 7.8 % (18.0-39.1); MEAN CORPUSCULAR HEMOGLOBIN 30.6 pg (28-32); MEAN CORPUSCULAR VOLUME 95.6 fL (81-99); MONOCYTES # (AUTO) 0.2 (0.2-0.8); MONOCYTES % 1.8 % (4.4-11.3); NEUTROPHILS # (AUTO) 9.7 (2.1-6.9); NEUTROPHILS % 87.4 % (38.7-80.0); PLATELET COUNT 201 x10e3/uL (140-360); RED BLOOD COUNT 3.63 x10e6/uL (3.6-5.1); RED CELL DISTRIBUTION WIDTH 14.6 % (11.7-14.4)
[2017-07-01 07:11] LABS: ALBUMIN 3.1 g/dL (3.5-5.0); ALBUMIN/GLOBULIN RATIO 0.8 (0.8-2.0); ANION GAP 14.3 mmol/L (8-16); CALCIUM 9.5 mg/dL (8.4-10.2); CREATININE, SERUM 1.4 mg/dL (0.57-1.11); POTASSIUM 3.3 mmol/L (3.5-5.1)
[2017-07-01] MEDS: IPRATROPIUM BROMIDE 0.02% 2.5 ML NEB NEB SCH ×4 (07:32→22:35)
[2017-07-01] MEDS: MEROPENEM 500MG 500 MG in WATER STERILE 10ML VIAL 10 ML IV SCH ×2 (09:00→22:03)
[2017-07-01] MEDS: INSULIN DETEMIR 100 UNIT/ML PEN SQ SCH ×2 (09:00→22:14)
[2017-07-01] MEDS: APIXAB 2.5 MG TABLET PO SCH ×2 (09:00→17:00)
[2017-07-01] MEDS: FUROSEMIDE INJ 10 MG/ML 4 ML VIAL IV SCH ×2 (09:00→22:03)
[2017-07-01] MEDS: AMLODIPINE BESYLATE 5 MG TAB PO SCH (09:00)
[2017-07-01] MEDS: FAMOTIDINE 20 MG/2 ML VIAL IV SCH ×2 (09:00→17:00)
[2017-07-01] MEDS: METOPROLOL TARTRATE 25 MG TAB NG SCH ×2 (09:00→17:00)
[2017-07-01] MEDS: SENNA-S TABLET PO SCH ×2 (09:00→17:00)
[2017-07-01] MEDS: CLONIDINE HCL 0.1 MG TAB PO SCH ×2 (09:00→17:00)
[2017-07-01] MEDS: HYDROCORTISONE SOD SUCCINATE 100 MG VIAL IV SCH ×2 (09:00→22:03)
[2017-07-01] MEDS ORDERED: POTASSIUM CHLORIDE 20MEQ/15ML UDC NG ONE (14:00)
--- NOTE | 2017-07-01 16:41 | Progress Note ---
DATE: July 01, 2017 PULMONARY MEDICINE PROGRESS NOTE SUBJECTIVE: Mrs. Akbar was seen and examined at bedside. She continues with steady progress. Patient with 2 liters per minute nasal cannula with 100% oxygen saturation. Liters in 0.6, liters out 2.0. Bowel movements daily. Patient continues to spontaneously breathe although she still has some increased airways resistance. There is still some small difficulty in managing secretions. There is consideration for aspiration as well. REVIEW OF SYSTEMS: Cannot get reliably as she is not speaking Polish at this time. OBJECTIVE VITAL SIGNS: Afebrile. Vital signs noted per electronic record. GENERALLY: In bed. Intermittent cough. Intermittent difficulty coughing secretions. HEENT: Normocephalic, atraumatic. NECK: Supple. Throat midline. LUNGS: Bilateral air entry, a few rhonchi, a few wheezes. CARDIOVASCULAR: S1 and S2. No murmurs, rubs or gallops. ABDOMINAL: Soft, nontender. EXTREMITIES: No clubbing, no cyanosis, no edema. INTEGUMENT: No rash. No purpura. LABS: White count 11, hematocrit 34, platelets 201. Potassium 3.3, BUN 40, creatinine 1.4. Albumin 3.1. Vancomycin peak level is 47 with a trough yesterday of 15.3. Cultures still with sputum cultures negative, urine culture negative, blood cultures negative x2. IMPRESSION AND PLAN 1. Acute respiratory failure, resolving. 2. Dysphagia, suspected aspiration. 3. Fluid overload. 4. Treat as pneumonia. 5. Weakness. Continue to mobilize the patient. Speech therapy evaluation to continue and see the safety of her diet. For now, clear-liquid diet but patient needs supervision. Repeat chest x-ray tomorrow. Continue steady diuresis and continue treatment for asthma flare. Wean hydrocortisone slowly as patient is able to tolerate and breathe better. Job#: [id number] EV
[2017-07-01] MEDS: SIMETHICONE 80 MG CHEW PO PRN (18:15)
[2017-07-01] MEDS: TEMAZEPAM 15 MG CAP PO PRN (22:00)
[2017-07-01] MEDS: VANCOMYCIN 750MG/NS 150ML IVPB 150 ML IV SCH (22:14)
[2017-07-02] VITALS (43 sets, daily range): BP systolic 99–170; BP diastolic 56–130
[2017-07-02] MEDS: DOXYCYCLINE 100MG/NS 100ML 100 ML IV SCH ×2 (00:17→12:00)
[2017-07-02] MEDS ORDERED: MAGNESIUM HYDROXIDE 30 ML UDC ONE (02:29)
[2017-07-02] MEDS: ALBUTEROL SULF 0.083% NEB SOLN 3 ML NEB NEB SCH ×7 (02:45→23:45)
[2017-07-02] MEDS: SIMETHICONE 80 MG CHEW PO PRN (03:32)
[2017-07-02] MEDS: GUAIFENESIN/DEXTROMETHORPHAN LIQD 5 ML UDC PO PRN (03:33)
--- NOTE | 2017-07-02 06:32 | Diagnostic Imaging Report ---
EXAMINATION: CHEST SINGLE (PORTABLE) INDICATION: Cough, shortness of breath COMPARISON: 07/01/2017 FINDINGS: TUBES and LINES: Left-sided pacemaker present. Right subclavian central line catheter is is stable. LUNGS: Lungs are not well inflated. There are bibasilar atelectasis. Worsening interstitial edema. PLEURA: No pleural effusion or pneumothorax. HEART AND MEDIASTINUM: Cardiac size is mildly enlarged. BONES AND SOFT TISSUES: No acute osseous lesion. Soft tissues are unremarkable. UPPER ABDOMEN: No free air under the diaphragm. IMPRESSION: Worsening cardiogenic pulmonary edema. Signed by: Dr. Marshall Tate M.D. on 07/02/2017 6:29 AM
[2017-07-02] MEDS: INSULIN REGULAR, HUMAN 100 UNIT/1 ML 3ML VIAL SQ SCH ×3 (06:34→18:00)
[2017-07-02 07:13] LABS: ANION GAP 15.1 mmol/L (8-16); CALCIUM 8.9 mg/dL (8.4-10.2); CREATININE, SERUM 1.47 mg/dL (0.57-1.11); MAGNESIUM 1.9 MG/DL (1.3-2.1); POTASSIUM 3.1 mmol/L (3.5-5.1)
[2017-07-02] MEDS: IPRATROPIUM BROMIDE 0.02% 2.5 ML NEB NEB SCH ×4 (07:50→23:45)
[2017-07-02] MEDS: FUROSEMIDE INJ 10 MG/ML 4 ML VIAL IV SCH ×2 (09:00→21:59)
[2017-07-02] MEDS: AMLODIPINE BESYLATE 5 MG TAB PO SCH (09:00)
[2017-07-02] MEDS: CLONIDINE HCL 0.1 MG TAB PO SCH ×2 (09:00→17:30)
[2017-07-02] MEDS: HYDROCORTISONE SOD SUCCINATE 100 MG VIAL IV SCH ×2 (09:00→21:59)
[2017-07-02] MEDS: MEROPENEM 500MG 500 MG in WATER STERILE 10ML VIAL 10 ML IV SCH ×2 (09:00→21:59)
[2017-07-02] MEDS: SENNA-S TABLET PO SCH ×2 (09:00→17:30)
[2017-07-02] MEDS: FAMOTIDINE 20 MG/2 ML VIAL IV SCH ×2 (09:00→17:00)
[2017-07-02] MEDS: METOPROLOL TARTRATE 25 MG TAB NG SCH ×2 (09:00→17:30)
[2017-07-02] MEDS: APIXAB 2.5 MG TABLET PO SCH ×2 (09:00→17:00)
[2017-07-02] MEDS ORDERED: POTASSIUM CHLORIDE 20MEQ/15ML UDC NG ONE (09:15)
--- NOTE | 2017-07-02 14:35 | Progress Note ---
DATE: July 02, 2017 PULMONARY MEDICINE PROGRESS NOTE SUBJECTIVE: Mrs. Akbar was seen and examined at bedside. Still weak. Still with some difficulty expectorating. However, by speech and swallow evaluation was allowed to start on some liquid diet. Patient continues to have intermittent confusion as per the family. Two liters per minute by nasal cannula oxygen is ongoing. Liters in 1.8, liters out 3.9. REVIEW OF SYSTEMS: No headaches, no bleeding. OBJECTIVE VITAL SIGNS: Afebrile. Vital signs noted per electronic record. GENERALLY: No acute distress, looks weak, looks chronic, sitting up at bedside. HEENT: Normocephalic, atraumatic. NECK: Supple. Throat midline. LUNGS: Bilateral air entry, a few rhonchi, rare wheezes. CARDIOVASCULAR: S1 and S2. No murmurs, rubs or gallops. ABDOMINAL: Soft, nontender. EXTREMITIES: No clubbing, no cyanosis. There is trace edema. INTEGUMENT: No rash. No purpura. LABS: Potassium 3.1, creatinine 1.5. Hematocrit 35, white count 11. BNP is 871. IMPRESSION AND PLAN 1. Dysphagia. 2. Acute respiratory failure, resolving. 3. Pneumonia. 4. Concomitant fluid overload. 5. Asthma with exacerbation. 6. Hypokalemia. 7. Hyperglycemia. 8. Weakness. Continue aggressive PT and OT. Followup MBS report is seen . Will review the MBS report. Patient will get slightly increased hyperglycemic control. Replete electrolytes. Will follow along closely. Job#: [id number] EV
--- NOTE | 2017-07-02 16:37 | Consultation ---
DATE OF CONSULTATION: July 02, 2017 NEPHROLOGY CONSULTATION REASON FOR CONSULTATION: Acute kidney injury on chronic kidney disease. This is an 89-year-old female who I have seen before, as I recall, at [facility]. A couple of years ago she was admitted with hyperkalemia and needing session of dialysis because of bradycardia. She is known to have CHF, status post pacemaker and she is known to have multiple other medical problems, hypertension, diabetes and chronic kidney disease. I am going to check the records to see what her baseline was. At this time, she came here complaining of a few days of productive cough with wheezing and dyspnea on minimal exertion. EMS was called and she was found to be hypoxic in hypoxic respiratory failure. She is intubated. She is brought to the ER. She was given some fluids to support her blood pressure, which is per records reported to be down in the 60's. Over the last couple of days, her x-ray got worse with pulmonary edema. She is on Lasix with good diuresis. Her creatinine came down from 1.7 to 1.4. We are consulted to be on the case given history of chronic kidney disease. Note that the patient does not follow up as an outpatient in the clinic. REVIEW OF SYSTEMS: Negative otherwise. PAST MEDICAL HISTORY: As mentioned above. PAST SURGICAL HISTORY: Status post hysterectomy, status post pacemaker. FAMILY HISTORY: Positive for hypertension, CAD. SOCIAL HISTORY: No smoking, alcohol, IV drug abuse. She is living with family. ALLERGIES: NEGATIVE PER RECORDS. PHYSICAL EXAMINATION VITAL SIGNS: Blood pressure today of 138/69, heart rate is 86, oxygen 100% on nasal cannula, 2 liters. The patient was extubated a couple of days ago. GENERAL APPEARANCE: No acute distress. HEAD, EARS, EYES, NOSE, AND NECK: No lymphadenopathy. HEART: Regular rate and rhythm. No murmurs. LUNGS: Bilateral rales. ABDOMEN: Soft and nontender. EXTREMITIES: No edema. LABORATORY DATA: Sodium 139, potassium 3.1, CO2 was 31, creatinine down from 1.7 to 1.4 and BUN is 41. Glucose 425, lactic acid 28.9, calcium 8.9, magnesium 1.9. BNP is 871. Troponin is negative. Her vancomycin trough was elevated. Her urine is positive for RBCs and glucose and protein. ASSESSMENT AND PLAN 1. Acute kidney injury on top of chronic kidney disease. We need to go back in the records to see what was her baseline kidney function, but I remember the patient was having chronic kidney disease, and, as I mentioned in the history, that at one point she was admitted to [facility] with hyperkalemia, severe, with bradycardia for which she had 1 session of dialysis, as I recall. I have to go back in the records to check. Creatinine came down from 1.7 to 1.4. I am assuming this could be close to her baseline. Monitor closely. She is on diuresis with excellent output. Check records and secretion of sodium. Also, monitor and adjust antibiotics to current GFR given vancomycin trough was high. Avoid any further nephrotoxins. Check renal ultrasound. 2. Electrolytes. Replete potassium p.r.n. She is on Aldactone. 3. Pulmonary edema on Lasix and Aldactone with good diuresis. 4. Congestive heart failure. Dr. Sutherland is following on medical treatment and status post pacemaker. 5. Respiratory failure, possible pneumonia. Dr. Skaggs is on the case with pulmonary and influenza was negative. She is on breathing treatment and extubated, now on nasal cannula oxygen with good saturation. Monitor closely. 6. Diabetes with high blood sugar. Adjust insulin. Thank you for the consult. We will update the primary team for further recommendations. In the meantime, we will check her old records to figure out what was her baseline. Keep diuresis and monitor electrolytes and replace accordingly. Thank you for the consult. Job#: [id number]
[2017-07-02] MEDS: SPIRONOLACTONE 25 MG TAB PO SCH (17:30)
[2017-07-02] MEDS: INSULIN DETEMIR 100 UNIT/ML PEN SQ SCH (21:45)
[2017-07-02] MEDS: VANCOMYCIN 750MG/NS 150ML IVPB 150 ML IV SCH (21:59)
[2017-07-03] VITALS (23 sets, daily range): BP systolic 96–166; BP diastolic 54–87
[2017-07-03] MEDS: INSULIN REGULAR, HUMAN 100 UNIT/1 ML 3ML VIAL SQ SCH ×5 (00:45→23:59)
[2017-07-03] MEDS: DOXYCYCLINE 100MG/NS 100ML 100 ML IV SCH ×3 (00:49→23:59)
[2017-07-03] MEDS: ALBUTEROL SULF 0.083% NEB SOLN 3 ML NEB NEB SCH ×6 (03:30→23:00)
--- NOTE | 2017-07-03 05:57 | Diagnostic Imaging Report ---
EXAMINATION: CHEST SINGLE (PORTABLE) INDICATION: Congestive heart failure COMPARISON: 07/02/2017 FINDINGS: TUBES and LINES: The pacemaker is intact. Right subclavian central line catheter with tip overlying the atrial caval junction. LUNGS: Lungs are well inflated. Minimal interlobular septi thickening present. There is confluent airspace opacity in the left midlung. There is mild prominence of the central pulmonary vasculature, consistent with pulmonary venous congestion. PLEURA: No pleural effusion or pneumothorax. HEART AND MEDIASTINUM: Cardiac size is moderately enlarged. There are atherosclerotic calcifications within the aorta. BONES AND SOFT TISSUES: No acute osseous lesion. Soft tissues are unremarkable. UPPER ABDOMEN: No free air under the diaphragm. IMPRESSION: Mild cardiogenic pulmonary edema. Left midlung airspace disease suspicious for superimposed pneumonia Signed by: Dr. Marshall Tate M.D. on 07/03/2017 5:54 AM
[2017-07-03 06:20] LABS: ANION GAP 15.1 mmol/L (8-16); CALCIUM 9.4 mg/dL (8.4-10.2); CREATININE, SERUM 1.4 mg/dL (0.57-1.11); PHOSPHORUS 2.5 MG/DL (2.3-4.7); POTASSIUM 3.1 mmol/L (3.5-5.1)
[2017-07-03] MEDS: IPRATROPIUM BROMIDE 0.02% 2.5 ML NEB NEB SCH ×3 (07:26→20:00)
--- NOTE | 2017-07-03 08:18 | Diagnostic Imaging Report ---
PROCEDURE:X-RAY MODIFIED BARIUM SWALLOW COMPARISON:None. INDICATIONS:Possible aspiration DISCUSSION:Fluoroscopic examination was performed in conjunction with speech pathology, during swallowing of a variety of thin and thick liquid consistencies. Fluoroscopy time: One minute and 35 seconds Total dose: 4.85 mGy CONCLUSION:No aspiration. Premature spillage to the level of the vallecula with trace pharyngeal residue. Please see the report from speech pathology for complete details. Johnnie Mireles D.O. Dictated by: Johnnie Mireles D.O. on 07/03/2017 at 8:26 Electronically approved by: Johnnie Mireles D.O. on 07/03/2017 at 8:26
[2017-07-03] MEDS ORDERED: SODIUM CHLORIDE 0.9% 50ML 50 ML ONE (08:48)
[2017-07-03] MEDS: FUROSEMIDE INJ 10 MG/ML 4 ML VIAL IV SCH ×2 (09:00→20:55)
[2017-07-03] MEDS: FAMOTIDINE 20 MG/2 ML VIAL IV SCH ×2 (09:19→16:27)
[2017-07-03] MEDS: MEROPENEM 500MG 500 MG in WATER STERILE 10ML VIAL 10 ML IV SCH ×2 (09:19→20:55)
[2017-07-03] MEDS: HYDROCORTISONE SOD SUCCINATE 100 MG VIAL IV SCH (09:19)
[2017-07-03] MEDS: SPIRONOLACTONE 25 MG TAB PO SCH ×2 (09:20→16:28)
[2017-07-03] MEDS: AMLODIPINE BESYLATE 5 MG TAB PO SCH (09:20)
[2017-07-03] MEDS: SENNA-S TABLET PO SCH ×2 (09:20→16:28)
[2017-07-03] MEDS: APIXAB 2.5 MG TABLET PO SCH ×2 (09:20→16:28)
[2017-07-03] MEDS: METOPROLOL TARTRATE 25 MG TAB NG SCH ×2 (09:20→16:28)
[2017-07-03] MEDS: CLONIDINE HCL 0.1 MG TAB PO SCH ×2 (09:20→16:28)
[2017-07-03] MEDS: INSULIN DETEMIR 100 UNIT/ML PEN SQ SCH ×2 (09:23→21:00)
[2017-07-03] MEDS ORDERED: POTASSIUM CHLORIDE 20MEQ/100ML 300 ML IV ONE (09:30)
[2017-07-03] MEDS ORDERED: POTASSIUM CHL IV SCH (10:00)
[2017-07-03] MEDS ORDERED: SODIUM CHLORIDE 0.9% IV SCH (10:00)
--- NOTE | 2017-07-03 14:24 | Progress Note ---
DATE: July 03, 2017 PULMONARY MEDICINE PROGRESS NOTE SUBJECTIVE: Ms. Akbar was seen and examined at bedside. Patient with decreased eating. Glucerna will be initiated. Does have 1 liter in, 2.6 liters out. There is some hyperglycemia that is being noted. Patient's chest x-ray continued to show some mild overload and left pneumonia, 98% oxygen saturation on 2 liters per minute nasal cannula. With PT, she is still very weak, but she did take 5 steps today. REVIEW OF SYSTEMS: No headaches, no bleeding. OBJECTIVE VITAL SIGNS: Afebrile. Vital signs noted per electronic record. GENERAL: No acute distress, alert and calm, sitting up. HEENT: Normocephalic, atraumatic. NECK: Supple. Throat midline. LUNGS: Bilateral air entry. Few rhonchi, rare wheezes. CARDIOVASCULAR: S1 and S2. No murmurs, rubs or gallops. ABDOMINAL: Soft, nontender. EXTREMITIES: No clubbing, no cyanosis. There is no edema. INTEGUMENT: No rash. No purpura. LABS: Potassium 3.1, creatinine 1.4. White count 11, hematocrit 35, platelets 201. IMPRESSION AND PLAN 1. Acute respiratory failure, resolved. 2. Asthma with exacerbation. 3. Pneumonia. 4. Fluid overload. 5. Weakness. 6. Chronic kidney disease. 7. Active hyperglycemia. Continue current treatment. Insulin was injected and there was some additional insulin given and started last night. Will follow up the result of this. Modify insulin as needed. Continue to promote diet. Give Glucerna for nutrition given her poor nutritional intake. Repeat chest x-ray tomorrow. Replete electrolytes and continue some diuretics. Will follow along closely. Job#: [id number] VAS
[2017-07-03] MEDS ORDERED: MEROPENEM 500 MG VIAL ONE (20:47)
[2017-07-03] MEDS: TEMAZEPAM 15 MG CAP PO PRN (21:30)
[2017-07-03] MEDS: VANCOMYCIN 750MG/NS 150ML IVPB 150 ML IV SCH (21:45)
[2017-07-03] MEDS ORDERED: SODIUM CHLORIDE 0.9% 250ML 250 ML ONE (22:10)
[2017-07-04] VITALS: BP 124/71
[2017-07-04] MEDS: IPRATROPIUM BROMIDE 0.02% 2.5 ML NEB NEB SCH ×4 (01:00→19:35)
[2017-07-04] MEDS: GUAIFENESIN/DEXTROMETHORPHAN LIQD 5 ML UDC PO PRN ×2 (01:14→05:48)
[2017-07-04] MEDS: ALBUTEROL SULF 0.083% NEB SOLN 3 ML NEB NEB SCH ×5 (03:00→19:35)
[2017-07-04 04:00] VITALS: BP 119/74
[2017-07-04] MEDS: INSULIN REGULAR, HUMAN 100 UNIT/1 ML 3ML VIAL SQ SCH ×3 (05:48→18:00)
--- NOTE | 2017-07-04 06:37 | Diagnostic Imaging Report ---
EXAMINATION: CHEST SINGLE (PORTABLE) INDICATION: CHF. Shortness of breath COMPARISON: 07/03/2017 FINDINGS: TUBES and LINES: Subclavian central line catheter is stable. Left-sided pacemaker is stable LUNGS: Lungs are not well inflated. There are bibasilar atelectasis. There is mild prominence of the central pulmonary vasculature, consistent with pulmonary venous congestion. Improved interlobular septi thickening PLEURA: No pleural effusion or pneumothorax. HEART AND MEDIASTINUM: Cardiac size is mildly enlarged. BONES AND SOFT TISSUES: No acute osseous lesion. Soft tissues are unremarkable. UPPER ABDOMEN: No free air under the diaphragm. IMPRESSION: Improving moderate cardiogenic pulmonary edema Signed by: Dr. Marshall Tate M.D. on 07/04/2017 6:33 AM
[2017-07-04 07:07] LABS: BASOPHILS % 0.4 % (0.0-1.0); EOSINOPHILS # (AUTO) 0.1 (0.0-0.4); EOSINOPHILS % 0.6 % (0.0-6.0); HEMATOCRIT 35.8 % (34.2-44.1); HEMOGLOBIN 11.6 g/dL (12.0-16.0); LYMPHOCYTES # (AUTO) 2.5 (1.0-3.2); LYMPHOCYTES % 25.7 % (18.0-39.1); MEAN CORPUSCULAR HEMOGLOBIN 30.5 pg (28-32); MEAN CORPUSCULAR HGB CONC 32.4 g/dL (31-35); MEAN CORPUSCULAR VOLUME 94.2 fL (81-99); MONOCYTES # (AUTO) 0.5 (0.2-0.8); NEUTROPHILS # (AUTO) 6.2 (2.1-6.9); NEUTROPHILS % 63.9 % (38.7-80.0); PLATELET COUNT 211 x10e3/uL (140-360); RED CELL DISTRIBUTION WIDTH 14.1 % (11.7-14.4)
[2017-07-04 07:36] LABS: CREATININE, SERUM 1.17 mg/dL (0.57-1.11)
[2017-07-04 07:46] VITALS: BP 171/113
[2017-07-04] MEDS ORDERED: MEROPENEM 500 MG VIAL ONE (08:52)
[2017-07-04] MEDS ORDERED: PREDNISONE 20 MG TAB PO SCH (09:00)
[2017-07-04] MEDS: FUROSEMIDE INJ 10 MG/ML 4 ML VIAL IV SCH (09:41)
[2017-07-04] MEDS: METOPROLOL TARTRATE 25 MG TAB NG SCH ×2 (09:41→17:32)
[2017-07-04] MEDS: FAMOTIDINE 20 MG/2 ML VIAL IV SCH ×2 (09:41→17:31)
[2017-07-04] MEDS: APIXAB 2.5 MG TABLET PO SCH ×2 (09:42→17:32)
[2017-07-04] MEDS: SENNA-S TABLET PO SCH ×2 (09:42→17:32)
[2017-07-04] MEDS: AMLODIPINE BESYLATE 5 MG TAB PO SCH (09:42)
[2017-07-04] MEDS: INSULIN DETEMIR 100 UNIT/ML PEN SQ SCH ×2 (09:42→21:00)
[2017-07-04] MEDS: CLONIDINE HCL 0.1 MG TAB PO SCH ×2 (09:42→17:32)
[2017-07-04] MEDS: SPIRONOLACTONE 25 MG TAB PO SCH ×2 (09:42→17:32)
[2017-07-04] MEDS: POTASSIUM CHLORIDE 20 MEQ TAB CR PO SCH ×2 (10:30→12:00)
[2017-07-04 11:19] VITALS: BP 150/72
[2017-07-04] MEDS: DOXYCYCLINE 100MG/NS 100ML 100 ML IV SCH ×2 (12:00→23:54)
--- NOTE | 2017-07-04 15:06 | Progress Note ---
DATE: July 04, 2017 PULMONARY MEDICINE PROGRESS NOTE SUBJECTIVE: Patient ate 50% of her breakfast after a long time and effort. Overall patient continues to eat very small amounts usually. Liters in 1.9, liters out 2.0. Chest x-ray is better with mild overload and mild atelectasis and opacities. Patient sitting up and talking but still very low in energy and very weak. REVIEW OF SYSTEMS: No headaches, no rash. OBJECTIVE VITAL SIGNS: Afebrile. Vital signs noted per electronic record. GENERALLY: No acute distress, alert and calm. HEENT: Normocephalic, atraumatic. NECK: Supple. Throat midline. LUNGS: Bilateral air entry, slightly limited to auscultation due to decreased effort. A few rhonchi. CARDIOVASCULAR: S1 and S2. No murmurs, rubs or gallops. ABDOMINAL: Soft, nontender. EXTREMITIES: No clubbing, no cyanosis, no edema. INTEGUMENT: No rash. No purpura. LABS: Potassium 3.0, BUN 29, creatinine 1.1. White count 9.7. Vancomycin trough 17. IMPRESSION AND PLAN 1. Pneumonia. 2. Acute respiratory failure, resolved. 3. Residual weakness and debility. 4. Rhtft-ve-vbgkqly kidney injury. 5. Hypokalemia today. 6. Fluid overload. 7. Intermittent confusion. Patient still with effects of severe sepsis and multiorgan dysfunction. Will continue to follow her. Continue aggressive PT and OT. Will wean the steroids down again. Stop vancomycin as cultures were not showing the need for this. Continue medicines for severe ICU pneumonia. Patient will continue on diuretics although this dose will be decreased as well, and we hope to get a steady negative fluid balance. Job#: [id number] VINCENT
[2017-07-04 15:42] VITALS: BP 132/83
[2017-07-04 20:00] VITALS: BP 158/72
[2017-07-04] MEDS: TEMAZEPAM 15 MG CAP PO PRN (20:49)
[2017-07-04] MEDS: MEROPENEM 500 MG VIAL IV SCH (20:49)
[2017-07-05] MEDS: INSULIN REGULAR, HUMAN 100 UNIT/1 ML 3ML VIAL SQ SCH ×3 (00:19→12:00)
[2017-07-05] MEDS: IPRATROPIUM BROMIDE 0.02% 2.5 ML NEB NEB SCH ×3 (02:00→15:23)
[2017-07-05] MEDS: ALBUTEROL SULF 0.083% NEB SOLN 3 ML NEB NEB SCH ×4 (02:00→15:23)
[2017-07-05 04:00] VITALS: BP 142/67
[2017-07-05 07:11] LABS: BASOPHILS % 0.3 % (0.0-1.0); EOSINOPHILS % 0.4 % (0.0-6.0); HEMATOCRIT 33.4 % (34.2-44.1); HEMOGLOBIN 10.9 g/dL (12.0-16.0); LYMPHOCYTES # (AUTO) 2.4 (1.0-3.2); LYMPHOCYTES % 25.4 % (18.0-39.1); MEAN CORPUSCULAR HEMOGLOBIN 30.6 pg (28-32); MEAN CORPUSCULAR HGB CONC 32.6 g/dL (31-35); MEAN CORPUSCULAR VOLUME 93.8 fL (81-99); MONOCYTES # (AUTO) 0.5 (0.2-0.8); MONOCYTES % 4.8 % (4.4-11.3); NEUTROPHILS # (AUTO) 6.3 (2.1-6.9); NEUTROPHILS % 66.6 % (38.7-80.0); PLATELET COUNT 203 x10e3/uL (140-360); RED BLOOD COUNT 3.56 x10e6/uL (3.6-5.1)
[2017-07-05 07:34] LABS: ALBUMIN 2.4 g/dL (3.5-5.0); ALBUMIN/GLOBULIN RATIO 0.7 (0.8-2.0); CALCIUM 8.6 mg/dL (8.4-10.2); CREATININE, SERUM 1.17 mg/dL (0.57-1.11); MAGNESIUM 1.9 MG/DL (1.3-2.1)
[2017-07-05 08:00] VITALS: BP 139/77
[2017-07-05] MEDS: FAMOTIDINE 20 MG/2 ML VIAL IV SCH (09:00)
[2017-07-05] MEDS: AMLODIPINE BESYLATE 5 MG TAB PO SCH (09:00)
[2017-07-05] MEDS: SENNA-S TABLET PO SCH (09:00)
[2017-07-05] MEDS: CLONIDINE HCL 0.1 MG TAB PO SCH (09:00)
[2017-07-05] MEDS: METOPROLOL TARTRATE 25 MG TAB NG SCH (09:00)
[2017-07-05] MEDS: SPIRONOLACTONE 25 MG TAB PO SCH (09:00)
[2017-07-05] MEDS ORDERED: PREDNISONE 10 MG TAB PO SCH (09:00)
[2017-07-05] MEDS ORDERED: FUROSEMIDE INJ 10 MG/ML 4 ML VIAL IV SCH (09:00)
[2017-07-05] MEDS: INSULIN DETEMIR 100 UNIT/ML PEN SQ SCH (09:00)
[2017-07-05] MEDS: APIXAB 2.5 MG TABLET PO SCH (09:00)
[2017-07-05] MEDS ORDERED: PREDNISONE 20 MG TAB PO SCH (09:00)
[2017-07-05] MEDS: MEROPENEM 500 MG VIAL IV SCH (09:00)
[2017-07-05 11:35] LABS: LYMPHOCYTES % (MANUAL) 29 % (19-48); METAMYELOCYTES % (MANUAL) 2 % (0-0); NEUTROPHILS % (MANUAL) 68 % (40-74); NUCLEATED RED BLOOD CELLS 1; PLATELET ESTIMATE ADEQUATE; PLATELET MORPHOLOGY COMMENT NORMAL; RBC MORPHOLOGY COMMENT NORMAL
[2017-07-05 12:00] VITALS: BP 120/86
--- NOTE | 2017-07-05 14:06 | Progress Note ---
DATE: July 05, 2017 PULMONARY MEDICINE PROGRESS NOTE SUBJECTIVE: Ms. Akbar was seen and examined at bedside. Still some elevated glucose levels for now. Chest x-ray was improving moderate fluid overload. The patient is sleepy, and she did receive some Restoril yesterday. Had 1.2 L in and 1.7 L out, 2 bowel movements. She is eating a little bit better today but, once again, is sleepy. REVIEW OF SYSTEMS: Cannot get now as she is sleepy. OBJECTIVE VITAL SIGNS: Afebrile. Vital signs noted per electronic record. GENERAL: No acute distress, alert and somnolent. HEENT: Normocephalic, atraumatic. NECK: Supple. Throat midline. LUNGS: Bilateral air entry, a few rhonchi. CARDIOVASCULAR: S1 and S2. No murmurs, rubs or gallops. ABDOMEN: Soft, nontender. EXTREMITIES: No clubbing. No cyanosis. There is only trace edema. INTEGUMENT: No rash. No purpura. LABS: 4.0 potassium, 33 BUN, 1.2 creatinine, 9.5 white count, 33 hematocrit. IMPRESSION AND PLAN 1. Acute respiratory failure, resolved. 2. Residual moderate fluid overload. 3. Pneumonia. 4. Weakness. 5. Pewjk-nv-[id number] kidney injury. 6. Dysphagia. Continue followup on her modified diet. Will consider Remeron if she has insomnia issues and we need to boost her appetite. Patient will continue with aggressive PT and OT. Will give her another boost of diuretic today and recheck electrolytes. She is under evaluation for disposition, and senior care facility is being contemplated. Will stop the current medicines and follow her sleepiness. Job#: [id number]
[2017-07-05] MEDS ORDERED: ACETAMINOPHEN 325 MG TAB PO PRN (15:45)
[2017-07-05 16:00] VITALS: BP 140/84
[2017-07-05] MEDS ORDERED: FUROSEMIDE INJ 10 MG/ML 4 ML VIAL IV ONE (16:30)
== END 2017-07-05 15:51 | DRG 871 ==
LOC: ER 10:31 → ERHOLD 14:07 → ICU 06-27 14:11 → MED/SURG3 07-03 16:21
PROC: 5A1945Z Respiratory Ventilation, 24-96 Consecutive Hours (ICD-10-PCS; principal; 2017-06-26)
PROC: 3E043XZ Introduction of Vasopressor into Central Vein, Percutaneous Approach (ICD-10-PCS; 2017-06-26)
DX: A41.9 Sepsis, unspecified organism (principal); R65.21 Severe sepsis with septic shock; J96.01 Acute respiratory failure with hypoxia; G93.40 Encephalopathy, unspecified; J18.9 Pneumonia, unspecified organism; I50.33 Acute on chronic diastolic (congestive) heart failure; N17.9 Acute kidney failure, unspecified; I13.0 Hypertensive heart and chronic kidney disease with heart failure and stage 1 through stage 4 chronic kidney disease, or unspecified chronic kidney disease; J45.901 Unspecified asthma with (acute) exacerbation; E11.65 Type 2 diabetes mellitus with hyperglycemia; N18.3 Chronic kidney disease, stage 3 (moderate); Z78.1 Physical restraint status; E86.0 Dehydration; I25.10 Atherosclerotic heart disease of native coronary artery without angina pectoris; Z86.73 Personal history of transient ischemic attack (TIA), and cerebral infarction without residual deficits; R53.81 Other malaise; J44.9 Chronic obstructive pulmonary disease, unspecified; I48.91 Unspecified atrial fibrillation; I08.3 Combined rheumatic disorders of mitral, aortic and tricuspid valves; E87.6 Hypokalemia; R13.10 Dysphagia, unspecified; K59.00 Constipation, unspecified; Z95.0 Presence of cardiac pacemaker
CPT/HCPCS: 31720; 36415; 36555; 36600; 71010; 74230; 76770; 80048; 80053; 80061; 80202; 81001; 82550; 82553; 82805; 82948; 83605; 83735; 83880; 84100; 84443; 84484; 85025; 85610; 85730; 87040; 87070; 87086; 87205; 87400; 93005; 93306; 94002; 94003; 94640; 94660; 94667; 94668; 96361; 96365; 96367; 96372; 96376; 97139; 99285; J0360; J1644; J1720; J1940; J2185; J2250; J3480; J7030; J7050

== ENCOUNTER → 2017-07-08 | Outpatient (CLI) | payer OTHER ==
[~2017-07-08] MED LIST changes: +ASPIR 8181 MG PO; +DIGOXIN125 MCG PO; +NITROGLYCERIN0.4 MG SL; +OMEPRAZOLE40 MG PO; +PREDNISONE5 MG PO; +TRAZODONE HCL50 MG PO
[2017-07-08 15:17] LABS: ALBUMIN 2.7 g/dL (3.5-5.0); ALBUMIN/GLOBULIN RATIO 0.7 (0.8-2.0); ANION GAP 16.8 mmol/L (8-16); CALCIUM 9.1 mg/dL (8.4-10.2); CREATININE, SERUM 1.66 mg/dL (0.57-1.11); MAGNESIUM 1.9 MG/DL (1.3-2.1); PHOSPHORUS 3.4 MG/DL (2.3-4.7); POTASSIUM 3.8 mmol/L (3.5-5.1)
[2017-07-08 15:35] LABS: BASOPHILS % 0.3 % (0.0-1.0); EOSINOPHILS % 0.2 % (0.0-6.0); HEMATOCRIT 39.8 % (34.2-44.1); HEMOGLOBIN 13.5 g/dL (12.0-16.0); LYMPHOCYTES # (AUTO) 1.5 (1.0-3.2); LYMPHOCYTES % 12.4 % (18.0-39.1); MEAN CORPUSCULAR HEMOGLOBIN 31.3 pg (28-32); MEAN CORPUSCULAR HGB CONC 33.9 g/dL (31-35); MEAN CORPUSCULAR VOLUME 92.1 fL (81-99); MONOCYTES # (AUTO) 0.5 (0.2-0.8); MONOCYTES % 4.2 % (4.4-11.3); NEUTROPHILS % 81.4 % (38.7-80.0); PLATELET COUNT 270 x10e3/uL (140-360); RED BLOOD COUNT 4.32 x10e6/uL (3.6-5.1); RED CELL DISTRIBUTION WIDTH 14.4 % (11.7-14.4)
== END ==
LOC: NPA 12:30
DX: Z02.89 Encounter for other administrative examinations (principal)
CPT/HCPCS: 36415; 80048; 80053; 83735; 84100; 85025

== ENCOUNTER → 2017-07-12 | Outpatient (CLI) | payer OTHER ==
[2017-07-12 16:19] LABS: ANION GAP 23.8 mmol/L (8-16); CALCIUM 9.1 mg/dL (8.4-10.2); CREATININE, SERUM 1.34 mg/dL (0.57-1.11); POTASSIUM 3.8 mmol/L (3.5-5.1)
[2017-07-12 16:20] LABS: BASOPHILS % 0.2 % (0.0-1.0); EOSINOPHILS % 0.2 % (0.0-6.0); HEMATOCRIT 43.2 % (34.2-44.1); HEMOGLOBIN 14.4 g/dL (12.0-16.0); LYMPHOCYTES # (AUTO) 2.2 (1.0-3.2); LYMPHOCYTES % 22.5 % (18.0-39.1); MEAN CORPUSCULAR HEMOGLOBIN 31.3 pg (28-32); MEAN CORPUSCULAR HGB CONC 33.3 g/dL (31-35); MEAN CORPUSCULAR VOLUME 93.9 fL (81-99); MONOCYTES # (AUTO) 0.5 (0.2-0.8); MONOCYTES % 5.2 % (4.4-11.3); NEUTROPHILS # (AUTO) 7.1 (2.1-6.9); PLATELET COUNT 259 x10e3/uL (140-360); RED CELL DISTRIBUTION WIDTH 14.7 % (11.7-14.4)
== END ==
LOC: NPA 13:20
DX: Z02.89 Encounter for other administrative examinations (principal)
CPT/HCPCS: 36415; 80048; 85025

== ENCOUNTER → 2017-07-19 | Outpatient (CLI) | payer OTHER ==
[2017-07-19 18:53] LABS: ANION GAP 16.5 mmol/L (8-16); CALCIUM 9.3 mg/dL (8.4-10.2); CREATININE, SERUM 1.42 mg/dL (0.57-1.11); POTASSIUM 4.5 mmol/L (3.5-5.1)
[2017-07-19 19:01] LABS: BASOPHILS % 0.3 % (0.0-1.0); EOSINOPHILS # (AUTO) 0.1 (0.0-0.4); EOSINOPHILS % 0.8 % (0.0-6.0); HEMATOCRIT 41.5 % (34.2-44.1); HEMOGLOBIN 13.7 g/dL (12.0-16.0); LYMPHOCYTES # (AUTO) 2.3 (1.0-3.2); LYMPHOCYTES % 19.2 % (18.0-39.1); MEAN CORPUSCULAR HEMOGLOBIN 30.9 pg (28-32); MEAN CORPUSCULAR VOLUME 93.5 fL (81-99); MONOCYTES # (AUTO) 0.5 (0.2-0.8); MONOCYTES % 4.6 % (4.4-11.3); NEUTROPHILS # (AUTO) 8.8 (2.1-6.9); NEUTROPHILS % 74.4 % (38.7-80.0); PLATELET COUNT 268 x10e3/uL (140-360); RED BLOOD COUNT 4.44 x10e6/uL (3.6-5.1); RED CELL DISTRIBUTION WIDTH 14.9 % (11.7-14.4)
== END ==
LOC: NPA 11:30
DX: Z02.89 Encounter for other administrative examinations (principal)
CPT/HCPCS: 36415; 80048; 85025

== ENCOUNTER → 2017-07-22 | Outpatient (CLI) | payer OTHER ==
[2017-07-22 17:07] LABS: BASOPHILS % 0.3 % (0.0-1.0); EOSINOPHILS # (AUTO) 0.1 (0.0-0.4); EOSINOPHILS % 0.7 % (0.0-6.0); HEMATOCRIT 40.6 % (34.2-44.1); HEMOGLOBIN 13.3 g/dL (12.0-16.0); LYMPHOCYTES # (AUTO) 2.3 (1.0-3.2); LYMPHOCYTES % 31.2 % (18.0-39.1); MEAN CORPUSCULAR HEMOGLOBIN 30.8 pg (28-32); MEAN CORPUSCULAR HGB CONC 32.8 g/dL (31-35); MONOCYTES # (AUTO) 0.5 (0.2-0.8); MONOCYTES % 6.1 % (4.4-11.3); NEUTROPHILS # (AUTO) 4.6 (2.1-6.9); NEUTROPHILS % 60.8 % (38.7-80.0); PLATELET COUNT 238 x10e3/uL (140-360); RED BLOOD COUNT 4.32 x10e6/uL (3.6-5.1); RED CELL DISTRIBUTION WIDTH 14.9 % (11.7-14.4)
[2017-07-22 17:08] LABS: CALCIUM 9.5 mg/dL (8.4-10.2); CREATININE, SERUM 1.42 mg/dL (0.57-1.11)
== END ==
LOC: NPA 11:00
DX: Z02.89 Encounter for other administrative examinations (principal)
CPT/HCPCS: 36415; 80048; 85025

== ENCOUNTER → 2017-08-05 | Outpatient (CLI) | payer OTHER ==
[~2017-08-05] MED LIST changes: +BENADRYL25 M1 PO; +BUDESONIDE0.5 MG/2 M NEB; +CLONIDINE HCL0.1 MG PO; +ENULOSE10 GM/15 M PO; +FUROSEMIDE40 MG PO; +SENNOSIDES8.6 MG PO
[2017-08-05 11:46] LABS: BILIRUBIN,URINE NEGATIVE (NEGATIVE); CLARITY,URINE CLOUDY (CLEAR); COLOR,URINE YELLOW (YELLOW); KETONES,URINE NEGATIVE (NEGATIVE); LEUKOCYTE ESTERASE ,URINE NEGATIVE (NEGATIVE); NITRITE,URINE NEGATIVE (NEGATIVE); URINE UROBILINOGEN 0.2 mg/dL (0.2 - 1)
[2017-08-05 11:55] LABS: PROTEIN,URINE DIPSTICK 1+ (NEGATIVE)
[2017-08-05 12:00] LABS: RBC,URINE 0-5 /HPF (0-5)
[2017-08-05 12:01] LABS: BACTERIA,URINE FEW /HPF
[2017-08-05 12:02] LABS: EPITHELIAL CELLS,URINE FEW /LPF
== END ==
LOC: NPA 11:30
DX: Z02.89 Encounter for other administrative examinations (principal)
CPT/HCPCS: 81001; 87086

== ENCOUNTER → 2017-08-12 | Outpatient (CLI) | payer OTHER ==
[2017-08-12 17:58] LABS: POTASSIUM 4.2 mmol/L (3.5-5.1)
[2017-08-12 17:59] LABS: ANION GAP 16.2 mmol/L (8-16); CREATININE, SERUM 1.97 mg/dL (0.57-1.11)
[2017-08-12 18:05] LABS: BASOPHILS # (AUTO) 0.1 (0.0-0.1); BASOPHILS % 0.7 % (0.0-1.0); EOSINOPHILS # (AUTO) 0.3 (0.0-0.4); EOSINOPHILS % 1.6 % (0.0-6.0); HEMATOCRIT 42.6 % (34.2-44.1); HEMOGLOBIN 13.6 g/dL (12.0-16.0); LYMPHOCYTES # (AUTO) 2.4 (1.0-3.2); LYMPHOCYTES % 15.5 % (18.0-39.1); MEAN CORPUSCULAR HEMOGLOBIN 30.4 pg (28-32); MEAN CORPUSCULAR HGB CONC 31.9 g/dL (31-35); MEAN CORPUSCULAR VOLUME 95.3 fL (81-99); MONOCYTES # (AUTO) 0.8 (0.2-0.8); MONOCYTES % 5.2 % (4.4-11.3); NEUTROPHILS # (AUTO) 11.6 (2.1-6.9); NEUTROPHILS % 75.3 % (38.7-80.0); PLATELET COUNT 264 x10e3/uL (140-360); RED BLOOD COUNT 4.47 x10e6/uL (3.6-5.1); RED CELL DISTRIBUTION WIDTH 16.4 % (11.7-14.4)
== END ==
LOC: NPA 12:22
DX: Z02.89 Encounter for other administrative examinations (principal)
CPT/HCPCS: 36415; 80048; 85025

== ENCOUNTER → 2017-08-14 | Outpatient (CLI) | payer OTHER ==
[2017-08-14 18:15] LABS: ANION GAP 18.6 mmol/L (8-16); CALCIUM 8.4 mg/dL (8.4-10.2); CREATININE, SERUM 1.43 mg/dL (0.57-1.11); POTASSIUM 4.6 mmol/L (3.5-5.1)
[2017-08-14 18:18] LABS: BASOPHILS # (AUTO) 0.1 (0.0-0.1); BASOPHILS % 1.1 % (0.0-1.0); EOSINOPHILS # (AUTO) 0.1 (0.0-0.4); EOSINOPHILS % 1.8 % (0.0-6.0); HEMATOCRIT 42.4 % (34.2-44.1); HEMOGLOBIN 13.6 g/dL (12.0-16.0); LYMPHOCYTES # (AUTO) 1.8 (1.0-3.2); MEAN CORPUSCULAR HEMOGLOBIN 30.6 pg (28-32); MEAN CORPUSCULAR HGB CONC 32.1 g/dL (31-35); MEAN CORPUSCULAR VOLUME 95.3 fL (81-99); MONOCYTES # (AUTO) 0.4 (0.2-0.8); MONOCYTES % 5.7 % (4.4-11.3); NEUTROPHILS # (AUTO) 4.8 (2.1-6.9); PLATELET COUNT 288 x10e3/uL (140-360); RED BLOOD COUNT 4.45 x10e6/uL (3.6-5.1); RED CELL DISTRIBUTION WIDTH 15.9 % (11.7-14.4)
== END ==
LOC: NPA 15:22
DX: Z02.89 Encounter for other administrative examinations (principal)
CPT/HCPCS: 36415; 80048; 85025

== ENCOUNTER 2017-08-16 03:37 | Emergency (ER) | payer MEDICARE, OTHER ==
[~2017-08-16] VITALS: Ht 142.2 cm; Wt 49.9 kg
--- OUTSIDE RECORDS SUMMARY | 2017-08-16 03:40 | XMS REPORT | Continuity of Care Document ---
Author Author [facility] Organization [facility] Address [address] [place] [address] Phone Unavailable Care Team Providers Care Folder Seamer Name Role Phone FREDY CRUZ MD PCP Insurance Providers Guarantor Low Akbar Address [address] [facility] [address] [address] Email [email or web address] [facility] Policy Number [id number] Subscriber's Name UniquebabatundeLow Relationship 18 Self / Same As Patient Group Number [id number] Effective Date 17 [facility] Policy Number [id number] Subscriber's Name NieshachandrakantLow Relationship 18 Self / Same As Patient Group Number [id number] Effective Date 11 Advance Directives Directive Response Recorded Date/Time Does the patient have an advance directive? No 08/07/17 3:29pm If yes, is advance directive on file with [facility]? No 08/07/17 3:29pm If not on file with [facility] will patient provide a copy? No 08/07/17 3:29pm Do you have a Directive to Physician? No 08/06/17 2:46pm Do you have a Medical Power of Commercial Real Estate Agent? No 08/06/17 2:46pm Do you have an out of hospital Do Not Resuscitate Order? No 08/06/17 2:46pm Do you have any special needs we should be aware of? No 08/06/17 2:46pm Do you have a support person here with you today? Yes 08/06/17 2:46pm Did patient receive Notice of Privacy Practices? Yes 08/06/17 2:46pm Did patient receive patient rights and responsibilities? Yes 08/06/17 2:46pm Problems No problem information available. Medications Current Home Medications Medication Dose Units Route Directions Days Qty Instructions Start Date Amlodipine Besylate 10 Mg Tablet 5 Mg Oral Daily Aspirin (Aspir 81) 81 Mg Tablet.dr 1 Tab Oral Daily Budesonide 0.5 Mg/2 Ml Ampul.neb 2 Ml Nebullizer Every 12 Hours Clonidine Hcl (Catapres) 0.1 Mg Tablet 0.1 Mg Oral Twice A Day Clonidine Hcl 0.1 Mg Tablet 1 Tab Oral Twice A Day 60 Tab Digoxin 125 Mcg Tablet 0.125 Mg Oral Use As Directed 30 Tab Diphenhydramine Hcl (Benadryl) 25 Mg Capsule 25 Mg Oral Every 8 Hours Enalapril Maleate (Vasotec) 10 Mg Tab 10 Mg Oral Daily Ezetimibe (Zetia) 10 Mg Tablet 10 Mg Oral Daily Furosemide 40 Mg Tablet 40 Mg Oral Daily 30 Tab Gabapentin 300 Mg Capsule 300 Mg Oral Daily Gabapentin 300 Mg Capsule 600 Mg Oral Bedtime 60 Cap Hydralazine Hcl 50 Mg Tablet 25 Mg Oral Three Times A Day Insulin Aspart (Novolog) Unknown Strength Vial Unknown Dose Insulin Detemir (Levemir) 100 Unit/1 Ml Insuln.pen 30 Units Sub-Q Bedtime Isosorbide Mononitrate (Isosorbide Mononitrate Er) 30 Mg Tab.er.24h 30 Mg Oral Daily Lactulose (Enulose) 10 Gm/15 Ml Solution 30 Ml Oral Bedtime Metoprolol Tartrate (Lopressor) 25 Mg Tab 25 Mg Oral Twice A Day Nitroglycerin 0.4 Mg Tab.subl 0.4 Mg Sublingual Every 5 Minutes Omeprazole 40 Mg Capsule.dr 20 Mg Oral Daily Pantoprazole Sodium 40 Mg Tablet.dr 40 Mg Oral Daily Potassium Chloride (K-Dur) 20 Meq Tab.prt.sr 20 Meq Oral Daily Prednisone 5 Mg Tablet 0.5 Tab Oral Daily Sennosides 8.6 Mg Tablet 2 Tab Oral Twice A Day Spironolactone 25 Mg Tablet 25 Mg Oral Daily Tramadol Hcl 50 Mg Tablet 50 Mg Oral Every 6 Hours as needed for Pain Trazodone Hcl 50 Mg Tablet 50 Mg Oral Bedtime 30 Tab Past Home Medications Medication Directions Ordered Status Furosemide (Lasix) 40 Mg Tablet, 40 Mg Oral Daily Discontinued Gabapentin 100 Mg Capsule, 100 Mg Oral Twice A Day Discontinued Metoprolol Succinate 25 Mg Tab.sr.24h, 25 Mg Oral Twice A Day Discontinued Social History Social History Problem Response Recorded Date/Time Onset Date Status Hx Psychiatric Problems No 08/07/2017 3:29pm Not Applicable Not Applicable Hx Alcohol Use No 08/07/2017 3:29pm Not Applicable Not Applicable Smoking Status Start Date Stop Date Unknown if ever smoked Hospital Discharge Instructions No hospital discharge instruction information available. Plan of Care Discharge Date 08/09/17 4:00pm Disposition TRANSFER SNF Prescriptions See Medication Section Functional Status Query Response Date Recorded Ambulation Ability Total Assistance August 07, 2017 3:35pm Toileting Ability Total Assistance August 09, 2017 9:00am Allergies, Adverse Reactions, Alerts Allergen Type Severity Reaction Status Last Updated No Known Drug Allergies Allergy Mild Active 06/26/17 Immunizations No immunization information available. Vital Signs Acute Vital Signs Vital Response Date/Time Temperature (Fahrenheit) 99.6 degrees F (97.6 - 99.5) 08/09/2017 12:00pm Pulse Pulse Rate (adult) 89 bpm (60 - 90) 08/09/2017 1:15pm Respiratory Rate 18 bpm (12 - 24) 08/09/2017 1:15pm Blood Pressure 123/90 mm Hg 08/09/2017 12:00pm Height 4 ft 8 in 08/08/2017 9:30pm Weight 110.13 lb 08/09/2017 2:23am Body Mass Index 24.7 kg/m^2 08/09/2017 2:23am Results Laboratory Results Test Name Result Units Flags Reference Collection Date/Time Result Date/ Time Comments Metamyelocytes % 2 % H 0-0 07/05/2017 6:58am 07/05/2017 11:35am Nucleated Red Blood Cells 1 07/05/2017 6:58am 07/05/2017 11:35am Influenza Virus Types A,B Antigen NEGATIVE NEGATIVE 06/26/2017 1:30pm 06/26/2017 2:21pm Triglycerides Level 97 MG/DL 0-149 06/28/2017 5:00am 06/28/2017 5:40am Cholesterol Level 145 MD/DL 0-199 06/28/2017 5:00am 06/28/2017 5:40am Less than 200 mg/dL Low Risk 201 - 239 mg/dL Borderline Risk 240 mg/dl and greater High Risk LDL Cholesterol 98 MG/DL 60-130 06/28/2017 5:00am 06/28/2017 5:40am HDL Cholesterol 28 MG/DL L 40-60 06/28/2017 5:00am 06/28/2017 5:40am Cholesterol/HDL Ratio 5.2 H 3.0-3.6 06/28/2017 5:00am 06/28/2017 5: 40am Thyroid Stimulating Hormone (TSH) 0.684 uIU/mL 0.350-4.940 06/28/2017 5: 00am 06/28/2017 5:59am Vancomycin Level Peak 47 ug/mL *H 20-40 07/01/2017 12:15am 07/01/2017 12: 57am Results called to BORIS KONGRN at 0056 on 07/01/17 by Marguerite Daniels. RB OK. Vancomycin Level Trough 17.4 ug/mL *H 5.0-10.0 07/03/2017 9:05pm 2017 9:49pm Results called to DALTON SOLIS at 2148 on 07/03/17 by JUVENAL CONTRERAS. RB OK. Phosphorus Level 3.4 MG/DL 2.3-4.7 07/08/2017 UNK 07/08/2017 3:21pm Magnesium Level 1.9 MG/DL 1.3-2.1 07/08/2017 UNK 07/08/2017 3:21pm Urine Fine Granular Casts 1-5 H 0 08/05/2017 2:45am 08/05/2017 12: 03pm White Blood Count 13.26 x10e3/uL H 4.8-10.8 08/09/2017 5:56am 2017 6:24am Red Blood Count 4.11 x10e6/uL 3.6-5.1 08/09/2017 5:5608/09/2017 6: 24am Hemoglobin 12.7 g/dL 12.0-16.0 08/09/2017 5:5608/09/2017 6:24am Hematocrit 39.0 % 34.2-44.1 08/09/2017 5:5608/09/2017 6:24am Mean Corpuscular Volume 94.9 fL 81-99 08/09/2017 5:5608/09/2017 6: 24am Mean Corpuscular Hemoglobin 30.9 pg 28-32 08/09/2017 5:5608/09/2017 6:24am Mean Corpuscular Hemoglobin Concent 32.6 g/dL 31-35 08/09/2017 5:5608/09/2017 6:24am Red Cell Distribution Width 16.2 % H 11.7-14.4 08/09/2017 5:562017 6:24am Platelet Count 195 x10e3/uL 140-360 08/09/2017 5:56am 08/09/2017 6: 24am Neutrophils (%) (Auto) 79.0 % 38.7-80.0 08/09/2017 5:56am 08/09/2017 6: 24am Lymphocytes (%) (Auto) 14.5 % L 18.0-39.1 08/09/2017 5:5608/09/2017 6 :24am Monocytes (%) (Auto) 4.9 % 4.4-11.3 08/09/2017 5:5608/09/2017 6: 24am Eosinophils (%) (Auto) 0.5 % 0.0-6.0 08/09/2017 5:56am 08/09/2017 6: 24am Basophils (%) (Auto) 0.3 % 0.0-1.0 08/09/2017 5:5608/09/2017 6:24am IM GRANULOCYTES % 0.8 % 0.0-1.0 08/09/2017 5:5608/09/2017 6:24am Neutrophils # (Auto) 10.5 H 2.1-6.9 08/09/2017 5:56am 08/09/2017 6: 24am Lymphocytes # (Auto) 1.9 1.0-3.2 08/09/2017 5:56am 08/09/2017 6:24am Monocytes # (Auto) 0.7 0.2-0.8 08/09/2017 5:56am 08/09/2017 6:24am Eosinophils # (Auto) 0.1 0.0-0.4 08/09/2017 5:56am 08/09/2017 6:24am Basophils # (Auto) 0.0 0.0-0.1 08/09/2017 5:56am 08/09/2017 6:24am Absolute Immature Granulocyte (auto 0.10 x10e3/uL 0-0.1 08/09/2017 5: 56am 08/09/2017 6:24am Differential Total Cells Counted 100 08/09/2017 5:56am 08/09/2017 8 :32am Neutrophils % (Manual) 80 % H 40-74 08/09/2017 5:56am 08/09/2017 8:32am Band Neutrophils % 2 % 08/09/2017 5:56am 08/09/2017 8:32am Lymphocytes % (Manual) 11 % L 19-48 08/09/2017 5:56am 08/09/2017 8:32am Monocytes % (Manual) 4 % 3.4-9.0 08/09/2017 5:56am 08/09/2017 8:32am Reactive Lymphocytes 3 08/09/2017 5:56am 08/09/2017 8:32am Platelet Estimate ADEQUATE 08/09/2017 5:56am 08/09/2017 8:32am Platelet Morphology Comment FEW LARGE 08/09/2017 5:56am 08/09/2017 8:32am Anisocytosis SLIGHT 08/09/2017 5:56am 08/09/2017 8:32am Red Cell Morphology Comment NORMAL 08/09/2017 5:56am 08/09/2017 8: 32am Prothrombin Time 15.0 seconds H 11.9-14.5 08/06/2017 2:13pm 08/06/2017 2 :58pm Prothromb Time International Ratio 1.12 08/06/2017 2:13pm 2017 2:58pm Oral Anticoagulant Therapy INR Values: 1. Low Intensity Therapy 1.5 - 2.0 2. Moderate Intensity Therapy 2.0 - 3.0 3. High Intensity Therapy(1) 2.5 - 3.5 4. High Intensity Therapy(2) 3.0 - 4.0 5. Panic Value INR > 5.0 Activated Partial Thromboplast Time 41.8 seconds H 23.8-35.5 08/06/2017 2 :13pm 08/06/2017 2:58pm D-Dimer Quantitative (PE/DVT) 1.70 ug/mLFEU H 0.00-0.45 08/06/2017 2: 13pm 08/06/2017 2:58pm As with all in vitro diagnostic tests, the test results should be interpreted by the physician in conjunction with clinical findings and other test results. Test results are reported in NEW D-dimer units(ug/mLFEU). Urine Color YELLOW YELLOW 08/06/2017 2:49pm 08/06/2017 2:50pm Urine Clarity CLOUDY H CLEAR 08/06/2017 2:49pm 08/06/2017 2:50pm Urine Specific [place] 1.015 1.010-1.025 08/06/2017 2:49pm 2017 2:50pm Urine pH 5 5 - 7 08/06/2017 2:49pm 08/06/2017 2:50pm Urine Leukocyte Esterase 2+ H NEGATIVE 08/06/2017 2:49pm 08/06/2017 2: 50pm Urine Nitrite NEGATIVE NEGATIVE 08/06/2017 2:49pm 08/06/2017 2:50pm Urine Protein 1+ H NEGATIVE 08/06/2017 2:49pm 08/06/2017 2:50pm Urine Glucose (UA) 3+ H NEGATIVE 08/06/2017 2:49pm 08/06/2017 2:50pm Urine Ketones NEGATIVE NEGATIVE 08/06/2017 2:49pm 08/06/2017 2:50pm Urine Urobilinogen 0.2 mg/dL 0.2 - 1 08/06/2017 2:49pm 08/06/2017 2: 50pm Urine Bilirubin NEGATIVE NEGATIVE 08/06/2017 2:49pm 08/06/2017 2: 50pm Urine Blood 1+ H NEGATIVE 08/06/2017 2:49pm 08/06/2017 2:50pm Urine WBC 21-50 /HPF H 0-5 08/06/2017 2:49pm 08/06/2017 3:15pm Urine RBC 6-10 /HPF H 0-5 08/06/2017 2:49pm 08/06/2017 3:15pm Urine Bacteria MANY /HPF H NONE 08/06/2017 2:49pm 08/06/2017 3:15pm Urine Epithelial Cells MODERATE /LPF NONE 08/06/2017 2:49pm 08/06/2017 3:15pm Sodium Level 142 mmol/L 136-145 08/09/2017 5:56am 08/09/2017 7:02am Potassium Level 3.6 mmol/L 3.5-5.1 08/09/2017 5:56am 08/09/2017 7:02am Chloride Level 114 mmol/L H 98-107 08/09/2017 5:56am 08/09/2017 7:02am Carbon Dioxide Level 16 mmol/L L 22-29 08/09/2017 5:56am 08/09/2017 7: 02am Anion Gap 15.6 mmol/L 8-16 08/09/2017 5:56am 08/09/2017 7:02am Blood Urea Nitrogen 39 mg/dL H 7-26 08/09/2017 5:56am 08/09/2017 7:02am Creatinine 1.71 mg/dL H 0.57-1.11 08/09/2017 5:56am 08/09/2017 7:02am BUN/Creatinine Ratio 23 6-25 08/09/2017 5:56am 08/09/2017 7:02am Estimat Glomerular Filtration Rate 28 ML/MIN L 60- 08/09/2017 5:56am 03/2018 7:02am Ranges were taken from the National Kidney Disease Education Program and the National Kid[employer] literature. Reference ranges: 60 or greater: Normal 16-59 (for 3 consecutive months): Chronic kidney disease 15 or less: Kidney failure Glucose Level 213 mg/dL H 74-118 08/09/2017 5:56am 08/09/2017 7:02am Calcium Level 8.4 mg/dL 8.4-10.2 08/09/2017 5:56am 08/09/2017 7:02am Bedside Glucose 318 mg/dL H 70-120 08/09/2017 11:50am 08/09/2017 11: 59am Meter ID: [id number] Lactic Acid Level 28.4 MG/DL H 4.5-19.8 08/06/2017 6:10pm 08/06/2017 6: 37pm Total Bilirubin 0.7 mg/dL 0.2-1.2 08/09/2017 5:56am 08/09/2017 7:02am Aspartate Amino Transf (AST/SGOT) 34 IU/L 5-34 08/09/2017 5:56am 2017 7:02am Alanine Aminotransferase (ALT/SGPT) 21 IU/L 0-55 08/09/2017 5:56am 03/2018 7:02am Total Protein 6.7 g/dL 6.5-8.1 08/09/2017 5:56am 08/09/2017 7:02am Albumin 2.6 g/dL L 3.5-5.0 08/09/2017 5:56am 08/09/2017 7:02am Globulin 4.1 g/dL H 2.3-3.5 08/09/2017 5:56am 08/09/2017 7:02am Albumin/Globulin Ratio 0.6 L 0.8-2.0 08/09/2017 5:56am 08/09/2017 7: 02am Alkaline Phosphatase 68 IU/L 40-150 08/09/2017 5:56am 08/09/2017 7: 02am B-Type Natriuretic Peptide 426.2 pg/mL H 0-100 08/06/2017 2:13pm 2017 3:07pm Creatine Kinase 83 IU/L 29-168 08/07/2017 9:47am 08/07/2017 10:35am Creatine Kinase MB 2.50 ng/mL 0.00-5.00 08/07/2017 9:47am 08/07/2017 10 :44am Troponin I 0.078 ng/mL 0-0.300 08/07/2017 9:47am 08/07/2017 10:44am Digoxin Level < 0.30 ng/mL L 0.8-2.0 08/06/2017 2:13pm 08/06/2017 4: 55pm Arterial Blood pH 7.38 7.31-7.41 08/06/2017 3:22pm 08/06/2017 3:30pm Arterial Blood Partial Pressure CO2 27 mmHg L 41-51 08/06/2017 3:22pm 3:30pm Arterial Blood Partial Pressure O2 92 mmHg 80-105 08/06/2017 3:22pm 11/2017 3:30pm Arterial Blood HCO3 16 mmol/L L 23-28 08/06/2017 3:22pm 08/06/2017 3: 30pm Arterial Blood Base Excess -9.0 mmol/L L -2 - 3 08/06/2017 3:22pm 2017 3:30pm Arterial Blood Oxygen Saturation 97.0 % 95-98 08/06/2017 3:22pm 2017 3:30pm Microbiology Results Procedure Source Organism/Result Collection Date/Time Result Date/Time Result Status Blood Culture Blood NO GROWTH AFTER 72 HOURS 2:13pm 08/09/2017 2:37pm Preliminary Urine Culture Urine,Catheterized KLEBSIELLA PNEUMONIAE 08/06/2017 2:49pm 08/08/2017 7:17am Final Procedures Procedure Status Date Provider(s) RESPIRATORY VENTILATION, 24-96 CONSECUTIVE HOURS Completed 06/26/17 AZAR MEZA MD INTRODUCTION OF VASOPRESSOR INTO CENTRAL VEIN, PERC APPROACH Completed AZAR MEZA MD Ultrasound, renal Active 06/27/17 JAXSON SEALS MD Encounters Encounter Location Arrival/Admit Date Discharge/Depart Date Attending Provider Discharged Inpatient [facility] 08/06/17 6:17pm 08/09/17 4:00pm FREDY CRUZ MD Registered Clinic [facility] 08/05/17 11:30am FREDY CRUZ MD Registered Clinic [facility] 07/22/17 11:00am FREDY CRUZ MD Registered Clinic [facility] 07/19/17 11:30am FREDY CRUZ MD Registered Clinic [facility] 07/12/17 1:20pm FREDY CRUZ MD Registered Clinic [facility] 07/08/17 12:30pm FREDY CRUZ MD Discharged Inpatient [facility] 06/26/17 2:07pm 07/05/17 3:51pm FREDY CRUZ MD
== END 2017-08-16 04:30 | disposition home or self-care (01) ==
LOC: ER 03:37
DX: R41.82 Altered mental status, unspecified (principal); R06.00 Dyspnea, unspecified; R00.0 Tachycardia, unspecified; R53.83 Other fatigue; I10 Essential (primary) hypertension; E11.9 Type 2 diabetes mellitus without complications; I50.9 Heart failure, unspecified; I25.2 Old myocardial infarction; Z86.73 Personal history of transient ischemic attack (TIA), and cerebral infarction without residual deficits
CPT/HCPCS: 99283

== ENCOUNTER → 2017-08-19 | Outpatient (CLI) | payer OTHER ==
[2017-08-19 17:57] LABS: ANION GAP 16.9 mmol/L (8-16); CALCIUM 8.4 mg/dL (8.4-10.2); CREATININE, SERUM 2.21 mg/dL (0.57-1.11); POTASSIUM 4.9 mmol/L (3.5-5.1)
[2017-08-19 18:09] LABS: BASOPHILS # (AUTO) 0.1 (0.0-0.1); BASOPHILS % 0.5 % (0.0-1.0); EOSINOPHILS % 0.2 % (0.0-6.0); HEMATOCRIT 35.1 % (34.2-44.1); HEMOGLOBIN 11.6 g/dL (12.0-16.0); LYMPHOCYTES # (AUTO) 1.4 (1.0-3.2); LYMPHOCYTES % 10.7 % (18.0-39.1); MEAN CORPUSCULAR HEMOGLOBIN 29.7 pg (28-32); MONOCYTES # (AUTO) 0.7 (0.2-0.8); MONOCYTES % 5.4 % (4.4-11.3); NEUTROPHILS # (AUTO) 10.8 (2.1-6.9); NEUTROPHILS % 80.8 % (38.7-80.0); PLATELET COUNT 311 x10e3/uL (140-360); RED CELL DISTRIBUTION WIDTH 15.3 % (11.7-14.4)
== END ==
LOC: NPA 12:00
DX: Z02.89 Encounter for other administrative examinations (principal)
CPT/HCPCS: 36415; 80048; 85025; 87493